=== PATIENT | male | born 1965 | race Caucasian/White ===

== ENCOUNTER → 2020-03-04 14:27 | Outpatient (BNVA) | payer MEDICAID, SELFPAY | PROVIDERS: Family Provider Counselor Professional; Visit Provider Nurse Practitioner Family | DX: R07.81 Pleurodynia (principal); M94.0 Chondrocostal junction syndrome [Tietze] | CPT/HCPCS: 71046 ==

== ENCOUNTER → 2020-04-28 18:00 | Outpatient (BNVA) | payer MEDICAID, SELFPAY | PROVIDERS: Family Provider Counselor Professional; Visit Provider Family Medicine | DX: I25.10 Atherosclerotic heart disease of native coronary artery without angina pectoris (principal); J44.9 Chronic obstructive pulmonary disease, unspecified; F32.9 Major depressive disorder, single episode, unspecified; G47.00 Insomnia, unspecified; F43.10 Post-traumatic stress disorder, unspecified; F41.1 Generalized anxiety disorder; F33.1 Major depressive disorder, recurrent, moderate; M51.9 Unspecified thoracic, thoracolumbar and lumbosacral intervertebral disc disorder; F51.04 Psychophysiologic insomnia | CPT/HCPCS: 80053; 80061; 85025 ==

== ENCOUNTER → 2020-05-27 08:57 | Outpatient (BNVA) | payer MEDICAID, SELFPAY | PROVIDERS: Family Provider Counselor Professional; PCP Family Medicine; Referring Provider Family Medicine; Visit Provider Anesthesiology Pain Medicine | DX: M51.16 Intervertebral disc disorders with radiculopathy, lumbar region (principal); M47.816 Spondylosis without myelopathy or radiculopathy, lumbar region; M54.9 Dorsalgia, unspecified; F43.10 Post-traumatic stress disorder, unspecified; M62.830 Muscle spasm of back; F17.220 Nicotine dependence, chewing tobacco, uncomplicated | CPT/HCPCS: 99204 ==

== ENCOUNTER → 2020-07-09 08:34 | Outpatient (BNVA) | payer MEDICAID, SELFPAY | PROVIDERS: Family Provider Counselor Professional; PCP Family Medicine; Visit Provider Anesthesiology Pain Medicine | DX: M51.16 Intervertebral disc disorders with radiculopathy, lumbar region (principal); M54.9 Dorsalgia, unspecified; M47.816 Spondylosis without myelopathy or radiculopathy, lumbar region; M62.830 Muscle spasm of back; F43.10 Post-traumatic stress disorder, unspecified; F17.220 Nicotine dependence, chewing tobacco, uncomplicated | CPT/HCPCS: 99214 ==

== ENCOUNTER → 2020-07-16 12:31 | Outpatient (BNVA) | payer MEDICAID, SELFPAY | PROVIDERS: Family Provider Counselor Professional; PCP Family Medicine; Visit Provider Anesthesiology Pain Medicine | DX: M51.16 Intervertebral disc disorders with radiculopathy, lumbar region (principal); M54.9 Dorsalgia, unspecified; F17.210 Nicotine dependence, cigarettes, uncomplicated | CPT/HCPCS: 64483; 64484; J1100; J3490 ==

== ENCOUNTER → 2020-07-30 12:41 | Outpatient (BNVA) | payer MEDICAID, SELFPAY | PROVIDERS: Family Provider Counselor Professional; PCP Family Medicine; Visit Provider Anesthesiology Pain Medicine | DX: M51.16 Intervertebral disc disorders with radiculopathy, lumbar region (principal); M54.9 Dorsalgia, unspecified; F17.220 Nicotine dependence, chewing tobacco, uncomplicated | CPT/HCPCS: 64483; 64484; J1100; J3490 ==

== ENCOUNTER → 2020-08-07 09:39 | Outpatient (BNVA) | payer MEDICAID, SELFPAY | PROVIDERS: Family Provider Counselor Professional; PCP Family Medicine; Visit Provider Counselor Professional | DX: F31.32 Bipolar disorder, current episode depressed, moderate (principal) | CPT/HCPCS: 90834 ==

== ENCOUNTER → 2020-08-13 10:35 | Outpatient (BNVA) | payer MEDICAID, SELFPAY | PROVIDERS: Family Provider Counselor Professional; PCP Family Medicine; Visit Provider Anesthesiology Pain Medicine | DX: M54.9 Dorsalgia, unspecified (principal); M51.16 Intervertebral disc disorders with radiculopathy, lumbar region; M47.816 Spondylosis without myelopathy or radiculopathy, lumbar region; M62.830 Muscle spasm of back; F43.10 Post-traumatic stress disorder, unspecified; F17.220 Nicotine dependence, chewing tobacco, uncomplicated | CPT/HCPCS: 64493; 64494; 64495; 99214; J1030; J3490 ==

== ENCOUNTER → 2020-08-20 10:47 | Outpatient (BNVA) | payer MEDICAID, SELFPAY | PROVIDERS: Family Provider Counselor Professional; PCP Family Medicine; Visit Provider Counselor Professional | DX: F31.32 Bipolar disorder, current episode depressed, moderate (principal) | CPT/HCPCS: 90834 ==

== ENCOUNTER → 2020-08-27 10:42 | Outpatient (BNVA) | payer MEDICAID, SELFPAY | PROVIDERS: Family Provider Counselor Professional; PCP Family Medicine; Visit Provider Anesthesiology Pain Medicine | DX: M51.16 Intervertebral disc disorders with radiculopathy, lumbar region (principal); M47.816 Spondylosis without myelopathy or radiculopathy, lumbar region; M54.9 Dorsalgia, unspecified; M62.830 Muscle spasm of back; F43.10 Post-traumatic stress disorder, unspecified; F17.220 Nicotine dependence, chewing tobacco, uncomplicated | CPT/HCPCS: 99213 ==

== ENCOUNTER → 2020-09-05 09:48 | Outpatient (BNVA) | payer MEDICAID, SELFPAY | PROVIDERS: Family Provider Counselor Professional; PCP Family Medicine; Visit Provider Counselor Professional | DX: F43.12 Post-traumatic stress disorder, chronic (principal) | CPT/HCPCS: 90834 ==

== ENCOUNTER → 2020-11-04 10:10 | Outpatient (BNVA) | payer MEDICAID, SELFPAY | PROVIDERS: Family Provider Counselor Professional; PCP Family Medicine; Visit Provider Registered Nurse | DX: I25.10 Atherosclerotic heart disease of native coronary artery without angina pectoris (principal); Z79.899 Other long term (current) drug therapy | CPT/HCPCS: 80061; 83036 ==

== ENCOUNTER → 2020-11-19 10:00 | Outpatient (BNVA) | payer MEDICAID, SELFPAY | PROVIDERS: Family Provider Counselor Professional; PCP Family Medicine; Visit Provider Anesthesiology Pain Medicine | DX: G89.29 Other chronic pain (principal); M54.9 Dorsalgia, unspecified; M51.16 Intervertebral disc disorders with radiculopathy, lumbar region; M47.816 Spondylosis without myelopathy or radiculopathy, lumbar region; M79.604 Pain in right leg; M62.830 Muscle spasm of back; F43.10 Post-traumatic stress disorder, unspecified; Z87.891 Personal history of nicotine dependence | CPT/HCPCS: 99214 ==

== ENCOUNTER 2021-01-14 06:00 | Outpatient (RCR) | payer MEDICAID, SELFPAY ==
[2020-11-24 14:41] VITALS: BP 139/92; BMI 24.4
== END 2021-02-12 23:59 | disposition home or self-care (01) ==
LOC: MPT 06:00
PROVIDERS: PCP Family Medicine; Referring Provider Anesthesiology Pain Medicine; Visit Provider Anesthesiology Pain Medicine
DX: M54.5 Low back pain (principal)
CPT/HCPCS: 97110; 97140; 97162; G0283

== ENCOUNTER → 2021-02-09 09:24 | Outpatient (BNVA) | payer MEDICAID, SELFPAY ==
[2020-11-24 14:41] VITALS: BP 139/92; BMI 24.4
== END ==
PROVIDERS: PCP Family Medicine; Visit Provider Anesthesiology Pain Medicine
DX: G89.29 Other chronic pain (principal); M51.17 Intervertebral disc disorders with radiculopathy, lumbosacral region; M51.16 Intervertebral disc disorders with radiculopathy, lumbar region; M47.816 Spondylosis without myelopathy or radiculopathy, lumbar region; M62.830 Muscle spasm of back; F43.10 Post-traumatic stress disorder, unspecified; M79.604 Pain in right leg
CPT/HCPCS: 99213; 99214

== ENCOUNTER → 2021-03-09 10:30 | Outpatient (BNVA) | payer MEDICAID, SELFPAY ==
[2020-11-24 14:41] VITALS: BP 139/92; BMI 24.4
== END ==
PROVIDERS: PCP Family Medicine; Visit Provider Anesthesiology Pain Medicine
DX: G89.29 Other chronic pain (principal); M51.16 Intervertebral disc disorders with radiculopathy, lumbar region; M47.816 Spondylosis without myelopathy or radiculopathy, lumbar region; M51.17 Intervertebral disc disorders with radiculopathy, lumbosacral region; M79.604 Pain in right leg; M62.830 Muscle spasm of back; F17.200 Nicotine dependence, unspecified, uncomplicated
CPT/HCPCS: 99212; 99213

== ENCOUNTER → 2021-04-15 13:40 | Outpatient (BNVA) | payer MEDICAID, SELFPAY ==
[2020-11-24 14:41] VITALS: BP 139/92; BMI 24.4
== END ==
PROVIDERS: PCP Family Medicine; Visit Provider Family Medicine
DX: I10 Essential (primary) hypertension (principal); R42 Dizziness and giddiness; Z28.21 Immunization not carried out because of patient refusal
CPT/HCPCS: 80053; 83735; 85025

== ENCOUNTER → 2021-06-09 09:35 | Outpatient (BNVA) | payer MEDICAID, SELFPAY ==
[2020-11-24 14:41] VITALS: BP 139/92; BMI 24.4
== END ==
PROVIDERS: PCP Family Medicine; Visit Provider Anesthesiology Pain Medicine
DX: M51.17 Intervertebral disc disorders with radiculopathy, lumbosacral region (principal); M51.16 Intervertebral disc disorders with radiculopathy, lumbar region; M62.830 Muscle spasm of back; M47.816 Spondylosis without myelopathy or radiculopathy, lumbar region; F43.10 Post-traumatic stress disorder, unspecified; Z87.891 Personal history of nicotine dependence
CPT/HCPCS: 99213

== ENCOUNTER → 2021-09-11 10:09 | Outpatient (BNVA) | payer MEDICAID, SELFPAY ==
[2020-11-24 14:41] VITALS: BP 139/92; BMI 24.4
== END ==
PROVIDERS: PCP Family Medicine; Visit Provider Surgery
DX: K21.00 Gastro-esophageal reflux disease with esophagitis, without bleeding (principal)
CPT/HCPCS: 99204

== ENCOUNTER 2021-10-27 11:31 | Outpatient (CLI) | payer MEDICAID, SELFPAY ==
[2020-11-24 14:41] VITALS: BP 139/92; BMI 24.4
--- NOTE | 2021-10-27 12:15 | USCV_ITS ---
Richard Santamaria Age: 56 Gender: M : 1965 Exam Date: 10/27/2021 12:28 Ordering Phys: Danette Minor DO Technologist: Exam Location: [facility] [place] Indication: Rt leg pain PROCEDURES: Venous duplex imaging was performed in only the right lower extremity. The following venous structures were evaluated: common femoral vein, profunda vein, proximal portion of the greater saphenous vein, superficial femoral vein, and the popliteal vein. In addition, the posterior tibial and peroneal trunk were evaluated. FINDINGS: Normal 2-D Doppler and augmentation and compressibility throughout the lower extremity venous structures. Additional imaging through the proximal calf veins also reveals no thrombus. Limited evaluation of the greater saphenous vein is patent with no thrombus.. CONCLUSIONS No evidence of right lower extremity DVT. Alex Shaver MD (Electronically Signed) Final Date: 27 October 2021 16:41 S
== END 2021-10-27 11:32 | disposition home or self-care (01) ==
LOC: RAD 11:33
PROVIDERS: PCP Family Medicine; Visit Provider Emergency Medicine
DX: M79.661 Pain in right lower leg (principal)
CPT/HCPCS: 93971

== ENCOUNTER → 2021-11-09 14:46 | Outpatient (BNVA) | payer MEDICAID, SELFPAY ==
[2020-11-24 14:41] VITALS: BP 139/92; BMI 24.4
== END ==
PROVIDERS: PCP Family Medicine; Visit Provider Family Medicine
DX: M79.661 Pain in right lower leg (principal)
CPT/HCPCS: 73590

== ENCOUNTER → 2021-11-12 08:38 | Outpatient (BNVA) | payer MEDICAID, SELFPAY ==
[2020-11-24 14:41] VITALS: BP 139/92; BMI 24.4
== END ==
PROVIDERS: PCP Family Medicine; Visit Provider Counselor Mental Health
DX: F33.2 Major depressive disorder, recurrent severe without psychotic features (principal); F43.12 Post-traumatic stress disorder, chronic
CPT/HCPCS: 90834

== ENCOUNTER → 2021-11-18 14:02 | Outpatient (BNVA) | payer MEDICAID, OTHER, SELFPAY ==
[2021-11-17 12:42] VITALS: BP 139/92; BMI 24.4
== END ==
PROVIDERS: PCP Family Medicine; Visit Provider Psychiatry & Neurology Neurology
DX: Z79.899 Other long term (current) drug therapy (principal)
CPT/HCPCS: 80061; 83036

== ENCOUNTER → 2021-11-26 10:52 | Outpatient (BNVA) | payer MEDICAID, SELFPAY ==
[2021-11-17 12:42] VITALS: BP 139/92; BMI 24.4
== END ==
PROVIDERS: PCP Family Medicine; Visit Provider Nurse Practitioner Family
DX: M79.661 Pain in right lower leg (principal); M25.561 Pain in right knee
CPT/HCPCS: 73560; 73565; 99214

== ENCOUNTER → 2021-11-27 09:47 | Outpatient (BNVA) | payer MEDICAID, SELFPAY ==
[2021-11-17 12:42] VITALS: BP 139/92; BMI 24.4
== END ==
PROVIDERS: PCP Family Medicine; Visit Provider Emergency Medicine
DX: I10 Essential (primary) hypertension (principal); R60.9 Edema, unspecified
CPT/HCPCS: 80053; 83880

== ENCOUNTER 2021-12-02 06:50 | Day surgery (SDC) | payer MEDICAID, SELFPAY ==
[2020-11-24 14:41] VITALS: BP 139/92; BMI 24.4
[2021-11-17 12:42] VITALS: BP 139/92; BMI 24.4
[2021-11-30 11:23] VITALS: BMI 24.7
[2021-12-02 07:07] VITALS: BP 111/81; PULSE 91; RESP 18; TEMP 36.3; O2SAT 97
[2021-12-02] MEDS: sodium chloride 0.9% 1,000 ML 30 ML IV (07:10)
--- NOTE | 2021-12-02 07:24 | ANES.PREANE2 ---
Pre-Anesthetic Assessment Height/Weight: Height 1.73 m Weight 73.936 kg Temp Pulse Resp BP Pulse Ox 97.4 F L 91 18 111/81 97 12/02/21 07:07 12/02/21 07:07 12/02/21 07:07 12/02/21 07:07 12/02/21 07:07 Preop Diagnosis: upper gi symptoms Operation Date: 12/02/21 08:30 Proposed Procedures p EGD 27654/k21.9(Not Applicable) - Rocco Ibarra MD Familial anesthetic complications: None Was Beta Cristóbal taken within 24 hours: N/A Was Clonidine taken within 24 hours: N/A Last intake: Intake Last Liquid Date 12/02/21 Last Liquid Time 06:00 Last Solid Date 12/01/21 Last Solid Time 16:00 Social Tobacco (chews) and No alcohol Exam alert, oriented x 3, clear to auscultation bilaterally and regular rate & rhythm Airway Mallampati: Class III Dentition: full Pulmonary None reported CV/HEM Coronary Artery Disease and Hypertension None reported Hepatic None reported GI Gastroesophageal Reflux Disease [facility] [place] chronic pain Anesthetic Plan ASA status: 3 Anesthesia: MAC Risk of > 500 ml blood loss (7ml/kg in children): No Medications/Allergies Home Medications Medication Instructions Recorded Confirmed Last Taken Type aspirin 81 mg tablet,delayed 81 mg PO DAILY 04/28/20 12/02/21 12/01/21 History release (Adult Aspirin Regimen) miscellaneous medical supply See Rx Instructions MISCELLANEOUS 10/10/20 12/02/21 12/01/21 Rx .COMPLEX #1 ea gabapentin 600 mg tablet 600 mg PO TID 90 Days #270 tab 08/25/21 12/02/21 12/01/21 Rx lisinopril 10 mg tablet 10 mg PO BID 90 Days #180 tab 08/25/21 12/02/21 12/01/21 Rx loratadine 10 mg tablet 10 mg PO .at bedtime 90 Days #90 08/25/21 12/02/21 12/01/21 Rx tab omeprazole 40 mg capsule,delayed 40 mg PO BID 90 Days #180 cap 08/25/21 12/02/21 12/01/21 Rx release fluticasone propionate 50 1 spray INTRANASAL BID #16 g 09/26/21 12/02/21 12/01/21 Rx mcg/actuation nasal spray,suspension (Flonase Allergy Relief) lamotrigine 25 mg tablet 75 mg PO BID 30 Days #180 tab 09/28/21 12/02/21 12/01/21 Rx mirtazapine 15 mg tablet 15 mg PO .qhs 30 Days #30 tab 09/28/21 12/02/21 12/01/21 Rx meclizine 12.5 mg tablet 12.5 mg PO TID PRN #90 tab 11/09/21 12/02/21 12/01/21 Rx hydrochlorothiazide 25 mg tablet 25 mg PO QAM #30 tab 11/27/21 12/02/21 12/01/21 Rx Allergies Allergy/AdvReac Type Severity Reaction Status Date / Time acetaminophen [From Percocet] Allergy Unknown UNKNOWN Verified 12/02/21 07:03 oxycodone [From Percocet] Allergy Unknown UNKNOWN Verified 12/02/21 07:03 Current Medications Generic Name Dose Route Start Last Admin Trade Name Freq PRN Reason Stop Dose Admin Sodium Chloride 1,000 mls @ 30 mls/hr 12/02/21 07:00 12/02/21 07:10 Sodium Chloride 0.9% IV 12/03/21 06:59 30 mls/hr .Q24H ML Administration PFSH Anesthesia Medical History Arthritis Chronic back pain GERD (gastroesophageal reflux disease) Psychiatric care Surgical History History of colonoscopy 2 years ago Hx of tonsillectomy Family History Father Stroke Heart attack Mother Cancer Social History Smoking and tobacco status: current every day smoker smokeless tobacco Smokeless tobacco user: chewing tobacco and snuff Smokeless tobacco details: takes a week to go through a can Quit status (tobacco): has tried quititng Number of times tried to quit tobacco: 2 Second hand smoke exposure: Yes Alcohol intake: current Alcohol intake frequency: holidays/special occasions only Alcohol type: beer Adopted: No Caregiver/support person: No Lives independently: No Household members: spouse and family Housing: Manufactured/Mobile home Marital status: Marital status details: 5 years Number of children: 0 Number of grandchildren: 0 Highest education level completed: High School Graduate service: Yes status: Discharged branch: [email or web address] Assignments: Outside [facility] ([facility]) Known or Potential Exposure: None Current occupational status: unemployed Pets and animals: Yes Pets & animals: dog(s) History of recent travel: No Leisure activites: music, games and reading Sexually active: Yes Current gender identity: Male Vicky/Catholic: Taoism Special vicky needs: No Agree to transfusion: Yes Financial difficulty paying for basics: Not Very Hard Data Anesthesia Cardiac Studies: No Data to Display
--- NOTE | 2021-12-02 08:51 | P.HP_ITS ---
Same Day Surgery H&P Indication for Procedure/HPI DATE OF PROCEDURE: December 02, 2021 CHIEF COMPLAINT/INDICATIONFOR SURGICAL PROCEDURE: egd PREOP DIAGNOSIS: upper gi symptoms PLANNED PROCEDURE: Operation Date: 12/02/21 08:30 Proposed Procedures p EGD 50458/k21.9(Not Applicable) - Rocco Ibarra MD Medications/Allergies* Home Medications Medication Instructions Recorded Confirmed Type aspirin 81 mg tablet,delayed 81 mg PO DAILY 04/28/20 12/02/21 History release (Adult Aspirin Regimen) Allergies/Adverse Reactions Allergy/AdvReac Type Severity Reaction Status Date / Time acetaminophen [From Percocet] Allergy Unknown UNKNOWN Verified 12/02/21 07:03 oxycodone [From Percocet] Allergy Unknown UNKNOWN Verified 12/02/21 07:03 Current Medications: Generic Name Dose Route Start Last Admin Trade Name Freq PRN Reason Stop Dose Admin Sodium Chloride 1,000 mls @ 30 mls/hr 12/02/21 07:00 12/02/21 07:10 Sodium Chloride 0.9% IV 12/03/21 06:59 30 mls/hr .Q24H ML Administration Pertinent History/Comorbid Conditions* Medical History (Updated 11/09/21 @ 14:45 by Adri Santoro MD) Arthritis Chronic back pain GERD (gastroesophageal reflux disease) Psychiatric care Surgical History (Updated 09/11/21 @ 10:44 by Rocco Ibarra MD) History of colonoscopy 2 years ago Hx of tonsillectomy Family History (Updated 04/28/20 @ 14:46 by Viktoriya Yu CMA) Heart attack Father Cancer Mother Stroke Father Social History Smoking and tobacco status: current every day smoker smokeless tobacco Smokeless tobacco user: chewing tobacco and snuff Smokeless tobacco details: takes a week to go through a can Quit status (tobacco): has tried quititng Number of times tried to quit tobacco: 2 Second hand smoke exposure: Yes Alcohol intake: current Alcohol intake frequency: holidays/special occasions only Alcohol type: beer Adopted: No Caregiver/support person: No Lives independently: No Household members: spouse and family Housing: Manufactured/Mobile home Marital status: Marital status details: 5 years Number of children: 0 Number of grandchildren: 0 Highest education level completed: High School Graduate service: Yes status: Discharged branch: [employer] Assignments: Outside [facility] ([facility]) Known or Potential Exposure: None Current occupational status: unemployed Pets and animals: Yes Pets & animals: dog(s) History of recent travel: No Leisure activites: music, games and reading Sexually active: Yes Current gender identity: Male Vicky/Sabianism: Rastafari Special vicky needs: No Agree to transfusion: Yes Financial difficulty paying for basics: Not Very Hard Pertinent Exam Findings alert, oriented x 3 and regular rate & rhythm Recommendations Surgery/Procedure today Coding Level of Care Code Acute Ed Educational Aide for Reji Alvarenga
[2021-12-02 09:20] VITALS: BP 95/64; PULSE 98; RESP 16; TEMP 36.2; O2SAT 92
[2021-12-02 09:30] VITALS: BP 93/70; PULSE 90; RESP 18; O2SAT 99
--- NOTE | 2021-12-02 12:52 | ANE.PACU2 ---
Inpatient post-anesthesia follow up: Airway intact: Yes Vital signs: Temperature 97.2 F Pulse Rate 90 Respiratory Rate 18 Blood Pressure 93/70 Pulse Oximetry 99 Oxygen Delivery Me thod Room Air Oxygen Flow Rate Fraction of Inspir ed Oxygen Hydration adequate: Yes Nausea and vomiting: Yes Pain level: 1 Mental status: Baseline
== END 2021-12-02 09:40 | disposition home or self-care (01) ==
PROVIDERS: PCP Family Medicine; Visit Provider Surgery
PROC: 0DJ08ZZ Inspection of Upper Intestinal Tract, Via Natural or Artificial Opening Endoscopic (ICD-10-PCS; CPT 43235; principal; 2021-12-02 08:30)
DX: K21.9 Gastro-esophageal reflux disease without esophagitis (principal); M19.90 Unspecified osteoarthritis, unspecified site; F17.220 Nicotine dependence, chewing tobacco, uncomplicated; I25.10 Atherosclerotic heart disease of native coronary artery without angina pectoris; I10 Essential (primary) hypertension; Z79.82 Long term (current) use of aspirin; K29.51 Unspecified chronic gastritis with bleeding
CPT/HCPCS: 43239; 88305; 88342; J2704; J7030

== ENCOUNTER → 2021-12-08 13:41 | Outpatient (BNVA) | payer MEDICAID, OTHER, SELFPAY ==
[2021-12-04 15:51] VITALS: BP 149/100; BMI 25.5
== END ==
PROVIDERS: PCP Family Medicine; Visit Provider Surgery
DX: Z09 Encounter for follow-up examination after completed treatment for conditions other than malignant neoplasm (principal); K21.00 Gastro-esophageal reflux disease with esophagitis, without bleeding
CPT/HCPCS: 99212

== ENCOUNTER 2022-01-19 09:23 | Outpatient (CLI) | payer MEDICAID, SELFPAY ==
[2021-11-17 12:42] VITALS: BP 139/92; BMI 24.4
[2021-12-04 15:51] VITALS: BP 149/100; BMI 25.5
--- NOTE | 2022-01-19 09:30 | MR_ITS ---
WS: [id number] MRI RIGHT KNEE HISTORY: Chronic pain. COMPARISON: Radiographs 11/26/2021 Anterior cruciate ligament: Intact. Small amount of increased T2 signal in the distal ACL. No full-th ickness tear identified. Posterior cruciate ligament: Intact. Medial collateral ligament: Mild displacement from the joint line by a small meniscal cyst. No tear. Posterior lateral corner structures: Intact. Medial menisci: Complex tear in the posterior horn extends to involve a large portion of the meniscus . Increased signal in the free edge. There is increased signal contacting the superior and inferior a rticular surfaces and there is a small lobulated cyst measuring 9 x 11 mm which is probably a menisca l cyst. This cyst is situated between the meniscus and the MCL. Lateral meniscus: Intact. Normal signal, size and shape. Extensor mechanism: Distal quadriceps tendon and patellar tendons are intact. Fluid and soft tissue: No joint effusion. No Moran's cyst. Osseous and articular structures: Patellofemoral compartment: Mild narrowing of the patellofemoral joint space. Loss of cartilage over the patellar eminence and medial facet. Small amount of subchondral edema at the patellar eminence. N o dislocation of the patella. Medial compartment: Mild narrowing of the medial compartment. Moderate diffuse chondromalacia. There is increased T2 signal consistent with softening an early changes of cartilage injury. Lateral compartment: Mild narrowing lateral compartment with mild diffuse chondromalacia. MR/MR knee RT wo con* [id number] IMPRESSION: 1. Complex tear posterior horn medial meniscus with involvement of the superio r and inferior articular surfaces and free edge. 2. Associated meniscal cyst with posterior medial meniscus. 3. Mild increased signal in the distal ACL but no tear. 4. Tricompartment chondromalacia. Most significant involving the medial compar tment, patellar eminence and lateral patellar facet.
== END 2022-01-19 09:24 | disposition home or self-care (01) ==
LOC: RAD 09:24
PROVIDERS: PCP Family Medicine; Visit Provider Nurse Practitioner Family
DX: S83.231A Complex tear of medial meniscus, current injury, right knee, initial encounter; M23.021 Cystic meniscus, posterior horn of medial meniscus, right knee; M22.41 Chondromalacia patellae, right knee; X58.XXXA Exposure to other specified factors, initial encounter
CPT/HCPCS: 73721

== ENCOUNTER 2022-01-20 20:00 | Outpatient (CLI) | payer MEDICAID, SELFPAY ==
[2021-12-04 15:51] VITALS: BP 149/100; BMI 25.5
== END 2022-01-20 20:01 | disposition home or self-care (01) ==
LOC: SLEEP 01-21 08:01
PROVIDERS: PCP Family Medicine; Visit Provider Family Medicine
DX: G47.33 Obstructive sleep apnea (adult) (pediatric)
CPT/HCPCS: 95811

== ENCOUNTER → 2022-02-23 10:36 | Outpatient (BNVA) | payer MEDICAID, SELFPAY ==
[2021-12-04 15:51] VITALS: BP 149/100; BMI 25.5
== END ==
PROVIDERS: PCP Family Medicine; Visit Provider Family Medicine
DX: M79.672 Pain in left foot (principal); J30.2 Other seasonal allergic rhinitis
CPT/HCPCS: 73630

== ENCOUNTER → 2022-02-26 07:52 | Outpatient (BNVA) | payer MEDICAID, SELFPAY ==
[2021-12-04 15:51] VITALS: BP 149/100; BMI 25.5
== END ==
PROVIDERS: PCP Family Medicine; Visit Provider Nurse Practitioner Family
DX: M23.203 Derangement of unspecified medial meniscus due to old tear or injury, right knee (principal)
CPT/HCPCS: 99214

== ENCOUNTER 2022-03-11 10:50 | Day surgery (SDC) | payer MEDICAID, SELFPAY ==
[2021-12-04 15:51] VITALS: BP 149/100; BMI 25.5
[2022-03-10 14:03] VITALS: BMI 27.3
[2022-03-11] VITALS (12 sets, daily range): BP systolic 91–128; BP diastolic 58–92; PULSE 85–102; RESP 12–22; TEMP 36.3–36.6; O2SAT 90–100
[2022-03-11] MEDS: sodium chloride 0.9% 1,000 ML 30 ML IV (11:16)
[2022-03-11 11:49] LABS: Anion Gap 14.3 (5-19); Blood Urea Nitrogen 13 mg/dL (6-20); Calcium 9.9 mg/dL (8.5-10.5); Carbon Dioxide 27 mmol/L (22-29); Chloride 99 mmol/L (98-107); Glomerular Filtration Rate 69.2 mL/min (90-130); Glucose 91 mg/dL (65-115); Osmolality Calculated 282 mOsm/kg (285-295); Potassium 4.3 mmol/L (3.5-5.1); Sodium 136 mmol/L (136-145)
--- NOTE | 2022-03-11 12:57 | ANES.PREANE2 ---
Pre-Anesthetic Assessment Height/Weight: Height 1.73 m Weight 81.647 kg Temp Pulse Resp BP Pulse Ox O2 Del Method 97.8 F 88 18 111/84 98 03/11/22 11:07 03/11/22 11:07 03/11/22 11:07 03/11/22 11:07 03/11/22 11:07 03/11/22 11:14 Preop Diagnosis: upper gi symptoms Operation Date: 03/11/22 13:05 Proposed Procedures p Knee Arthroscopy(Right) - Doroteo Parr MD Familial anesthetic complications: none Was Beta Cristóbal taken within 24 hours: N/A Was Clonidine taken within 24 hours: N/A Last intake: Intake Last Liquid Date 03/10/22 Last Liquid Time 22:00 Last Solid Date 03/10/22 Last Solid Time 19:00 Social No alcohol and No tobacco Exam alert, oriented x 3, clear to auscultation bilaterally and regular rate & rhythm Airway Submandibular: within normal limits Cervical ROM: within normal limits Mallampati: Class II Dentition: chipped Comments: Comments: poor Pulmonary Sleep Apnea CV/HEM Coronary Artery Disease and Hypertension GI Gastroesophageal Reflux Disease Musc/skel Lower Back Pain Neuropsych Anxiety and Depression Anesthetic Plan ASA status: 2 Anesthesia: General Medications/Allergies Home Medications Medication Instructions Recorded Confirmed Last Taken Type aspirin 81 mg tablet,delayed 81 mg PO DAILY 04/28/20 03/11/22 03/10/22 17:00 History release (Adult Aspirin Regimen) miscellaneous medical supply See Rx Instructions miscellaneous 10/10/20 02/26/22 12/01/21 Rx .COMPLEX #1 ea fluticasone propionate 50 1 spray intranasal BID #16 grams 09/26/21 03/11/22 03/10/22 Rx mcg/actuation nasal spray,suspension (Flonase Allergy Relief) meclizine 12.5 mg tablet 12.5 mg PO TID PRN dizziness #90 11/09/21 03/10/22 12/01/21 Rx tabs hydrochlorothiazide 25 mg tablet 25 mg PO QAM #30 tabs 11/27/21 03/11/22 03/10/22 17:00 Rx lisinopril 10 mg tablet 10 mg PO BID 90 days #180 tabs 12/17/21 03/11/22 03/10/22 17:00 Rx omeprazole 40 mg capsule,delayed 40 mg PO BID 90 days #180 caps 12/17/21 03/11/22 03/10/22 17:00 Rx release gabapentin 600 mg tablet 900 mg PO TID 90 days #405 tabs 12/21/21 03/11/22 03/10/22 17:00 Rx lamotrigine 25 mg tablet 75 mg PO BID 30 days #180 tabs 12/30/21 03/11/22 03/10/22 17:00 Rx mirtazapine 30 mg tablet 30 mg PO .qhs 30 days #30 tabs 12/30/21 03/11/22 03/10/22 17:00 Rx furosemide 20 mg tablet (Lasix) 20 mg PO QAM PRN edema 30 days #30 01/04/22 03/11/22 03/10/22 17:00 Rx tabs cetirizine 10 mg tablet 10 mg PO DAILY PRN allergy 02/23/22 03/11/22 03/10/22 17:00 Rx symptoms 90 days #90 tabs Allergies Allergy/AdvReac Type Severity Reaction Status Date / Time oxycodone [From Percocet] Allergy Unknown UNKNOWN Verified 03/10/22 14:00 Current Medications Generic Name Dose Route Start Last Admin Trade Name Freq PRN Reason Stop Dose Admin Sodium Chloride 1,000 mls @ 30 mls/hr 03/11/22 11:15 03/11/22 11:16 Sodium Chloride 0.9% IV 03/12/22 11:14 30 mls/hr .Q24H ML Administration PFSH Anesthesia Medical History Arthritis Chronic back pain GERD (gastroesophageal reflux disease) Psychiatric care Surgical History H/O esophagogastroduodenoscopy (12/02/21) History of colonoscopy 2 years ago Hx of tonsillectomy Family History Father Stroke Heart attack Mother Cancer Social History Smoking and tobacco status: current every day smoker (Smokeless tobacco) smokeless tobacco Smokeless tobacco user: chewing tobacco and snuff Smokeless tobacco details: takes a week to go through a can Quit status (tobacco): has tried quititng Number of times tried to quit tobacco: 2 Second hand smoke exposure: Yes Alcohol intake: current Alcohol intake frequency: holidays/special occasions only Alcohol type: beer Adopted: No Caregiver/support person: No Lives independently: No Household members: spouse and family Housing: Manufactured/Mobile home Marital status: Marital status details: 5 years Number of children: 0 Number of grandchildren: 0 Highest education level completed: High School Graduate service: Yes status: Discharged branch: [employer] Assignments: Outside [facility] ([facility]) Known or Potential Exposure: None Current occupational status: unemployed Pets and animals: Yes Pets & animals: dog(s) History of recent travel: No Leisure activites: music, games and reading Sexually active: Yes Current gender identity: Male Vicky/Scientology: Orthodoxy Special vicky needs: No Agree to transfusion: Yes Financial difficulty paying for basics: Not Very Hard Data Anesthesia : 03/11/22 11:19 BMP 03/11/22 11:19 Sodium 136 Potassium 4.3 Chloride 99 Carbon Dioxide 27 BUN 13 Creatinine 1.1 Glucose 91 Calcium 9.9 Cardiac Studies: No Data to Display
--- NOTE | 2022-03-11 13:02 | P.HP_ITS ---
Same Day Surgery H&P Indication for Procedure/HPI DATE OF PROCEDURE: March 11, 2022 CHIEF COMPLAINT/INDICATIONFOR SURGICAL PROCEDURE: Right medial meniscal tear PREOP DIAGNOSIS: upper gi symptoms PLANNED PROCEDURE: Operation Date: 03/11/22 13:05 Proposed Procedures p Knee Arthroscopy(Right) - Doroteo Parr MD 7 year old male patient, he is here today for an evaluation of his right knee pain. He states that he has had pain to his right knee for 20 years now. He states that his pain is reproduced by walking and standing.? He states that time it will pop and even catch some days is worse than others.? He is started babying that knee so much that now his left knee is starting to hurt from taking more of the load he states that he uses tylenol and gabapentin for pain. He states that his pain will wake him up at night.? Medications/Allergies* Home Medications Medication Instructions Recorded Confirmed Type aspirin 81 mg tablet,delayed 81 mg PO DAILY 04/28/20 03/11/22 History release (Adult Aspirin Regimen) Allergies/Adverse Reactions Allergy/AdvReac Type Severity Reaction Status Date / Time oxycodone [From Percocet] Allergy Unknown UNKNOWN Verified 03/10/22 14:00 Current Medications: Generic Name Dose Route Start Last Admin Trade Name Freq PRN Reason Stop Dose Admin Sodium Chloride 1,000 mls @ 30 mls/hr 03/11/22 11:15 03/11/22 11:16 Sodium Chloride 0.9% IV 03/12/22 11:14 30 mls/hr .Q24H ML Administration Pertinent History/Comorbid Conditions* Medical History (Updated 02/26/22 @ 08:23 by ANAHI Morocho) Arthritis Chronic back pain GERD (gastroesophageal reflux disease) Psychiatric care Surgical History (Updated 12/02/21 @ 09:20 by Rocco Ibarra MD) H/O esophagogastroduodenoscopy (12/02/21) History of colonoscopy 2 years ago Hx of tonsillectomy Family History (Updated 04/28/20 @ 14:46 by Viktoriya Yu [facility]) Heart attack Father Cancer Mother Stroke Father Social History Smoking and tobacco status: current every day smoker (Smokeless tobacco) smokeless tobacco Smokeless tobacco user: chewing tobacco and snuff Smokeless tobacco details: takes a week to go through a can Quit status (tobacco): has tried quititng Number of times tried to quit tobacco: 2 Second hand smoke exposure: Yes Alcohol intake: current Alcohol intake frequency: holidays/special occasions only Alcohol type: beer Adopted: No Caregiver/support person: No Lives independently: No Household members: spouse and family Housing: Manufactured/Mobile home Marital status: Marital status details: 5 years Number of children: 0 Number of grandchildren: 0 Highest education level completed: High School Graduate service: Yes status: Discharged branch: [place] Assignments: Outside [facility] ([facility]) Known or Potential Exposure: None Current occupational status: unemployed Pets and animals: Yes Pets & animals: dog(s) History of recent travel: No Leisure activites: music, games and reading Sexually active: Yes Current gender identity: Male Vicky/Protestant: Mormon Special vicky needs: No Agree to transfusion: Yes Financial difficulty paying for basics: Not Very Hard Pertinent Exam Findings alert, oriented x 3 and clear to auscultation bilaterally ?RANGE OF MOTION:? EXAMINED LIMB? Extention:? [FULL]? Flexion:? [120]? Contralateral. knee Extension full Flexion 120 ?? ? GOOD STABILITY, cruciate and collateral ligaments, Patient with pain with valgus and varus test patella tracks well there is some crepitus noted.? Negative patellar apprehension test.? Tomi test positive Pertinent Data 3 views of the right knee are reviewed dated 11/26/2021. Weightbearing AP radiographs are included. There is minimal medial joint space narrowing. There is no joint sclerosis or osteophytes. An MRI of the right knee and report are reviewed dated 01/19/2022. The patient has complex tearing of his medial meniscus with associated meniscal cyst there is tricompartmental degenerative changes most marked involving the medial compartment. Recommendations Surgery/Procedure today Other Plans: The patient has ongoing right knee pain and mechanical symptoms. His radiographs reveal reasonable preservation of his medial joint space. He has clear meniscal tearing. We will proceed with a diagnostic arthroscopy and likely medial meniscectomy. I warned him in the presence of degenerative changes he could continue to have ongoing symptoms. I discussed the possible need for further procedures including knee replacement Coding Level of Care Code Acute Instructional Developer for Reji Alvarenga
[2022-03-11] MEDS: ceFAZolin 2,000 MG in sodium chloride 0.9% (plus) 50 ML 100 MG IV (13:34)
[2022-03-11] MEDS: morphine 4 mg/mL SDV 1 mL 8 MG XX (14:13)
--- NOTE | 2022-03-11 14:31 | PM.OP ---
Operative Report Date of procedure: March 11, 2022 Pre-op diagnosis: Preop Diagnosis Right knee medial meniscal tear Post-op diagnosis: same Procedure done: Arthroscopic partial right medial meniscectomy Surgeon: Doroteo Parr Anesthesia: General Estimated blood loss (mL): 2 Findings: The patient had a complex chronic tear of his posterior medial meniscus with unstable peripheral longitudinal tear of a very poor tendon quality involving approximately the central 80% of the posterior medial meniscal Disposition: PACU Procedure: The patient was taken to the operating room and given 2 g of Ancef. He was given a general anesthesia and prepped and draped in the supine position with a tourniquet on the right thigh. The tourniquet was never inflated. The knee was infiltrated with 30 cc of 0.5% Marcaine and 8 mg of morphine. A timeout was performed. The knee was entered through standard inferior medial and inferior lateral portals. The diagnostic portion arthroscopy was performed. The complex tearing was identified in the medial meniscus. The meniscal quality was poor and repair was not thought to be feasible. Utilizing a straight basket unstable posterior third of the meniscus was removed. The rim was then cleaned up with an incisor shaver and Dominguez and Nephew Werewolf probe leaving a stable rim approxi-20% of the meniscus remaining. The leg was then placed in a [id number] position. The lateral meniscus was healthy. No chondromalacia was identified over either femoral condyle tibial plateaus, knee was irrigated with saline. Portals were closed with 3-0 Prolene. Sterile dressings were applied. The patient was extubated and taken to recovery room in stable condition.
--- NOTE | 2022-03-11 14:41 | SUR.PHASEI ---
14:30 RECEIVED PT FROM OR STAFF. UNRESPONSIVE TO VERBAL. SNORING RESPIRATIONS. NSR ON MONITOR.
--- NOTE | 2022-03-11 15:05 | SUR.PHASEI ---
15:00 PT ALERT AND ORIENTED. VENTILATING WELL. ROM AND SENSATION OF RIGHT FOOT.
--- NOTE | 2022-03-11 15:06 | ANE.PACU2 ---
Inpatient post-anesthesia follow up: Airway intact: Yes Vital signs: Temperature 97.3 F Pulse Rate 89 Respiratory Rate 12 Blood Pressure 91/58 Pulse Oximetry 99 Oxygen Delivery Me thod Nasal Cannula Oxygen Flow Rate 4 Fraction of Inspir ed Oxygen Hydration adequate: Yes Nausea and vomiting: No Pain level: 2 Mental status: Baseline
[2022-03-11] MEDS: acetaminophen 500 mg Tablet 1000 MG PO (15:39)
== END 2022-03-11 15:53 | disposition home or self-care (01) ==
PROVIDERS: Anesthesiology; PCP Family Medicine; Visit Provider Orthopaedic Surgery
PROC: (CPT 29870; principal; 2022-03-11 12:55)
DX: S83.201A Bucket-handle tear of unspecified meniscus, current injury, left knee, initial encounter (principal); X58.XXXA Exposure to other specified factors, initial encounter; G47.30 Sleep apnea, unspecified; I25.10 Atherosclerotic heart disease of native coronary artery without angina pectoris; I10 Essential (primary) hypertension; K21.9 Gastro-esophageal reflux disease without esophagitis; F41.9 Anxiety disorder, unspecified; F32.A Depression, unspecified; Z79.82 Long term (current) use of aspirin; F17.290 Nicotine dependence, other tobacco product, uncomplicated
CPT/HCPCS: 29881; 80048; J0690; J1100; J2250; J2270; J2405; J2704; J3010; J3490; J7030

== ENCOUNTER → 2022-03-16 09:05 | Outpatient (BNVA) | payer MEDICAID, SELFPAY ==
[2021-12-04 15:51] VITALS: BP 149/100; BMI 25.5
== END ==
PROVIDERS: PCP Family Medicine; Visit Provider Nurse Practitioner Family
DX: Z98.890 Other specified postprocedural states (principal)
CPT/HCPCS: 99024

== ENCOUNTER → 2022-05-25 11:01 | Outpatient (BNVA) | payer MEDICAID, SELFPAY ==
[2021-12-04 15:51] VITALS: BP 149/100; BMI 25.5
== END ==
PROVIDERS: PCP Family Medicine; Visit Provider Family Medicine
DX: K21.9 Gastro-esophageal reflux disease without esophagitis (principal); I10 Essential (primary) hypertension; R06.02 Shortness of breath; J44.9 Chronic obstructive pulmonary disease, unspecified; Z87.891 Personal history of nicotine dependence
CPT/HCPCS: 71046; 80053; 83735; 85025

== ENCOUNTER 2022-07-01 13:31 | Outpatient (CLI) | payer MEDICAID, SELFPAY ==
[2021-12-04 15:51] VITALS: BP 149/100; BMI 25.5
== END 2022-07-01 13:32 | disposition home or self-care (01) ==
LOC: RT 13:32
PROVIDERS: PCP Family Medicine; Visit Provider Family Medicine
DX: R06.02 Shortness of breath (principal); J44.9 Chronic obstructive pulmonary disease, unspecified; Z87.891 Personal history of nicotine dependence
CPT/HCPCS: 94060; 94729

== ENCOUNTER → 2022-09-16 09:41 | Outpatient (BNVA) | payer MEDICAID, SELFPAY ==
[2021-12-04 15:51] VITALS: BP 149/100; BMI 25.5
== END ==
PROVIDERS: PCP Family Medicine; Visit Provider Internal Medicine Pulmonary Disease
DX: R06.09 Other forms of dyspnea (principal); J98.4 Other disorders of lung; F17.220 Nicotine dependence, chewing tobacco, uncomplicated; F41.9 Anxiety disorder, unspecified; F32.A Depression, unspecified; F43.10 Post-traumatic stress disorder, unspecified
CPT/HCPCS: 36415; 85651; 86038; 86140; 86200; 86235; 86431; 99204

== ENCOUNTER 2022-09-24 15:35 | Outpatient (CLI) | payer MEDICAID, SELFPAY ==
[2021-12-04 15:51] VITALS: BP 149/100; BMI 25.5
--- NOTE | 2022-09-24 16:00 | CT_ITS ---
WS: [id number] CT CHEST CT-HIGH RESOLUTION, NONCONTRAST. HISTORY: Interstitial lung disease. Technique: High-resolution chest CT is performed in inspiration, expiration, supine and prone positio eddi. All CT scans at [facility] use at least one of these dose optimization techniques: automated exposure control; mA and/or kV adjustment per patient size (includes targeted exams where dose is mat ched to clinical indication); or iterative reconstruction. DLP: 1109.55 mGy.cm COMPARISON: Chest radiograph 05/25/2022 Findings: There are a few scattered granulomata and micronodules. 2 mm nodule LEFT lower lobe. No mas s. No pneumonia. Lungs are mildly hyperinflated. No cystic lung disease. No blebs or bulla. No bronchiectasis or honey combing. No mosaic attenuation on the expiratory portion of the examination. There is symmetric volum e loss during expiration. No pericardial or pleural effusions. Normal size aorta and pulmonary artery. No mediastinal or hilar adenopathy. There is increased soft tissue in the anterior mediastinum which may be reactive thymic t issue. Small hiatal hernia. Although the liver is incompletely visualized the liver appears enlarged with hepatic steatosis. Sple en also appears enlarged. On the localizer the spleen measures at least 18.5 cm in length. Normal adr enal glands. CT/CT chest wo con [id number] Impression: 1. No evidence for bronchiectasis, honeycombing or bleb formation. 2. No pneumonia or suspicious pulmonary mass or nodule. 3. No adenopathy. 4. Incompletely included on this examination but the liver and spleen appear e nlarged. There is also hepatic steatosis. Recommend additional evaluation of th e liver and spleen. Abdominal ultrasound or CT abdomen and pelvis with IV and o ral contrast.
== END 2022-09-24 15:36 | disposition home or self-care (01) ==
LOC: RAD 15:39
PROVIDERS: PCP Family Medicine; Visit Provider Internal Medicine Pulmonary Disease
DX: J98.4 Other disorders of lung (principal)
CPT/HCPCS: 71250

== ENCOUNTER 2022-10-15 06:51 | Outpatient (CLI) | payer MEDICAID, SELFPAY ==
[2021-12-04 15:51] VITALS: BP 149/100; BMI 25.5
--- NOTE | 2022-10-15 | US_ITS ---
WS: [id number] ULTRASOUND ABDOMEN CLINICAL INFORMATION: ABD PAIN COMPARISON: None. FINDINGS: Liver Size: Enlarged Craniocaudal length: 21.2 cm. Echogenicity: Coarse with fatty filtration Surface nodularity: None. Mass (size and location): None. Bile ducts Intrahepatic ducts: Normal. Common bile duct diameter: 0.2 cm. Gallbladder Tiny polyp Gallstones: None. Gallbladder sludge: None. Gallbladder wall thickening: None. Pericholecystic fluid: None. Sonographic Moser sign: Absent. Pancreas Normal as visualized. Spleen Splenomegaly: Mild Craniocaudal length: 12.2 cm. Right kidney: Normal. Hydronephrosis: None. Size: 9.7 cm x 5.4 cm x 4.4 cm Left kidney: Small cysts LEFT kidney measuring 6 Hydronephrosis: None. Size: 9.5 cm x 3.8 cm x 4.8 cm. Abdominal aorta and IVC Visualized portions are normal. Ascites: None. US/US abdomen complete* [id number] IMPRESSION: 1. Hepatomegaly with diffuse fatty infiltration. 2. Tiny polyp in the gallbladder measuring 3.4 x 2.7 mm. 3. No hydronephrosis in either kidney. 4. Tiny simple cyst LEFT kidney measuring 10 x 8 mm. 5. Spleen size upper limits of normal measuring 12.1 x 7.1 cm
== END 2022-10-15 06:52 | disposition home or self-care (01) ==
LOC: RAD 06:52
PROVIDERS: PCP Family Medicine; Visit Provider Internal Medicine Pulmonary Disease
DX: R10.9 Unspecified abdominal pain (principal); K76.0 Fatty (change of) liver, not elsewhere classified; R16.0 Hepatomegaly, not elsewhere classified; K82.4 Cholesterolosis of gallbladder; N28.1 Cyst of kidney, acquired
CPT/HCPCS: 76700

== ENCOUNTER → 2023-02-08 11:24 | Outpatient (BNVA) | payer MEDICAID, OTHER, SELFPAY ==
[2021-12-04 15:51] VITALS: BP 149/100; BMI 25.5
== END ==
PROVIDERS: PCP Family Medicine; Visit Provider Family Medicine
DX: I10 Essential (primary) hypertension (principal); I25.10 Atherosclerotic heart disease of native coronary artery without angina pectoris; R55 Syncope and collapse
CPT/HCPCS: 80053; 80061; 83036; 85025

== ENCOUNTER → 2023-03-21 09:23 | Outpatient (BNVA) | payer MEDICAID, OTHER, SELFPAY ==
[2021-12-04 15:51] VITALS: BP 149/100; BMI 25.5
== END ==
PROVIDERS: PCP Family Medicine; Referring Provider Family Medicine; Visit Provider Family Medicine
DX: M51.16 Intervertebral disc disorders with radiculopathy, lumbar region (principal)
CPT/HCPCS: 72100

== ENCOUNTER → 2023-04-26 08:51 | Outpatient (BNVA) | payer MEDICAID, SELFPAY ==
[2021-12-04 15:51] VITALS: BP 149/100; BMI 25.5
== END ==
PROVIDERS: PCP Family Medicine; Referring Provider Family Medicine; Visit Provider Student in an Organized Health Care Education/Training Program
DX: M23.306 Other meniscus derangements, unspecified meniscus, right knee
CPT/HCPCS: 73560; 73565; 99214

== ENCOUNTER → 2023-05-24 07:58 | Outpatient (BNVA) | payer MEDICAID, SELFPAY ==
[2021-12-04 15:51] VITALS: BP 149/100; BMI 25.5
== END ==
PROVIDERS: PCP Family Medicine; Visit Provider Psychiatry & Neurology Neurology
DX: R55 Syncope and collapse (principal)
CPT/HCPCS: 95812; 95819; 99203

== ENCOUNTER 2023-06-01 06:46 | Outpatient (CLI) | payer MEDICAID, SELFPAY ==
[2021-12-04 15:51] VITALS: BP 149/100; BMI 25.5
--- NOTE | 2023-06-01 07:15 | USCV_ITS ---
Richard Santamaria Age: 58 Gender: M : 1965 Exam Date: 06/01/2023 07:17 Ordering Phys: Troy Spain MD Technologist: EMMA [place] [facility] [place]: SYNCOPE AND DIZZINESS Risk Factors: Previous Vascular Surgery: Right Brachial BP: / Left Brachial BP: / Right Left Velocity (cm/s) Spectral Plaque Velocity (cm/s) Spectral Plaque Syst/Diast Broadening Syst/Diast Broadening 103.60/29.80 Prox CCA 84.50 / 27.00 86.30/ 25.60 Mid CCA 84.10 / 30.90 97.40/ 34.20 Distal CCA 82.80 / 32.90 93.20/ 19.90 Prox ICA 50.00 / 19.10 55.20/ 28.90 Mid ICA 48.60 / 21.40 51.90/ 28.30 Distal ICA 54.10 / 31.30 74.10 ECA 61.50 0.90 ICA/CCA 0.64 Antegrade Vertebral Antegrade 47.30/ 19.10 cm/s 28.80/ 11.20 cm/s Tri Subclavian Tri 93.10 115.8 0 FINDINGS Comparison: none available. No significant elevation of systolic or diastolic velocities. Waveforms are normal. No significant amount of calcified plaque or intimal thickening identified. CONCLUSIONS Normal carotid doppler ultrasound. Dr. Katerina Oreilly DO (Electronically Signed) Final Date: 01 June 2023 07:57 S
== END 2023-06-01 06:47 | disposition home or self-care (01) ==
LOC: RAD 06:46
PROVIDERS: PCP Family Medicine; Visit Provider Psychiatry & Neurology Neurology
DX: R55 Syncope and collapse (principal); R42 Dizziness and giddiness
CPT/HCPCS: 93880

== ENCOUNTER 2023-06-01 06:47 | Outpatient (CLI) | payer MEDICAID, SELFPAY ==
[2021-12-04 15:51] VITALS: BP 149/100; BMI 25.5
--- NOTE | 2023-06-01 09:30 | MR_ITS ---
WS: [id number] MRI RIGHT KNEE NONCONTRAST TECHNIQUE: Axial PD, coronal PD fat sat, coronal PD, sagittal PD, and sagittal PD fat-sat images obta ined. CLINICAL INFORMATION: rule out meniscal tear COMPARISON: MRI 01/19/2022 FINDINGS: Postoperative changes partial meniscectomy posterior horn medial meniscus. This appears new compared to previous. Postoperative changes involving the posterior horn medial meniscus. No new appearing men iscal tears. Normal lateral meniscus. ACL and PCL appear intact. Advanced chondromalacia patella with subchondral edema worse involving the medial patella facet. Small suprapatellar effusion. Medial and lateral patellar retinaculum appear intact. Medial and lateral collateral ligaments appear intact. N ormal popliteus. Normal popliteal fossa. Grade 2-3 chondromalacia medial and lateral joint compartments. No subchondral edema. Joint space august rowing worse in the medial joint compartment. IMPRESSION: 1. ACL and PCL are intact. 2. Interval postoperative changes partial meniscectomy medial meniscus for previously described medi al meniscal tear. No definite evidence of recurrent tear. 3. 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 Small suprapatellar effusion. 4. Grade II and III chondromalacia medial and lateral joint compartments. 5. Medial and lateral collateral ligaments appear intact. Outbridge grading: grade IV: full-thickness cartilage loss with underlying bone reactive changes
== END 2023-06-01 06:48 | disposition home or self-care (01) ==
LOC: RAD 06:47
PROVIDERS: PCP Family Medicine; Visit Provider Student in an Organized Health Care Education/Training Program
DX: M23.306 Other meniscus derangements, unspecified meniscus, right knee (principal); M22.41 Chondromalacia patellae, right knee; Z98.890 Other specified postprocedural states
CPT/HCPCS: 73721

== ENCOUNTER 2023-06-22 07:01 | Outpatient (CLI) | payer MEDICAID, SELFPAY ==
[2021-12-04 15:51] VITALS: BP 149/100; BMI 25.5
--- NOTE | 2023-06-22 07:15 | MR_ITS ---
WS: [id number] MRI BRAIN WITH AND WITHOUT CONTRAST HISTORY: R55 - Syncope and collapse COMPARISON: None available. TECHNIQUE: Multiplanar imaging performed through the brain with MultiHance 20 ml's IV. No acute infarcts are seen. Atkins-white matter differentiation is well preserved. Very slight volume l oss. No prior infarcts. No susceptibility artifacts or prior lacunar infarcts. Ventricles and extra-axial spaces are normal. Clivus and pituitary gland are normal. Visualized posterior fossa and brainstem are also normal. Postcontrast images are negative for masses or vascular malformations. Dural venous sinuses are normal. Paranasal sinuses: Small mucous retention cyst in the LEFT maxillary sinus. Mastoid air cells: Normal. Calvarium and scalp: Normal. IMPRESSION: 1. No acute infarct or hemorrhage. 2. Very minimal volume loss. No prior infarct. 3. No mass or abnormal enhancement.
[2023-06-22] MEDS: gadobenate dimeglumine 20 mL vial IV (07:45)
== END 2023-06-22 07:02 | disposition home or self-care (01) ==
LOC: RAD 07:01
PROVIDERS: PCP Family Medicine; Visit Provider Psychiatry & Neurology Neurology
DX: R55 Syncope and collapse (principal)
CPT/HCPCS: 70553; A9577

== ENCOUNTER → 2023-06-24 09:55 | Outpatient (BNVA) | payer MEDICAID, SELFPAY ==
[2021-12-04 15:51] VITALS: BP 149/100; BMI 25.5
== END ==
PROVIDERS: PCP Family Medicine; Visit Provider Student in an Organized Health Care Education/Training Program
DX: M23.306 Other meniscus derangements, unspecified meniscus, right knee; M17.11 Unilateral primary osteoarthritis, right knee
CPT/HCPCS: 99213

== ENCOUNTER → 2023-08-08 15:15 | Outpatient (BNVA) | payer MEDICAID, SELFPAY ==
[2021-12-04 15:51] VITALS: BP 149/100; BMI 25.5
== END ==
PROVIDERS: PCP Family Medicine; Visit Provider Psychiatry & Neurology Neurology
DX: R55 Syncope and collapse (principal)
CPT/HCPCS: 99212

== ENCOUNTER → 2023-11-07 13:56 | Outpatient (BNVA) | payer MEDICAID, SELFPAY ==
[2021-12-04 15:51] VITALS: BP 149/100; BMI 25.5
== END ==
PROVIDERS: PCP Family Medicine; Visit Provider Internal Medicine Cardiovascular Disease
DX: R55 Syncope and collapse (principal); I10 Essential (primary) hypertension; Z87.891 Personal history of nicotine dependence; R06.09 Other forms of dyspnea; R00.2 Palpitations
CPT/HCPCS: 99204

== ENCOUNTER → 2023-11-15 16:50 | Outpatient (BNVA) | payer MEDICAID, SELFPAY ==
[2021-12-04 15:51] VITALS: BP 149/100; BMI 25.5
== END ==
PROVIDERS: PCP Family Medicine; Visit Provider Family Medicine
DX: M25.562 Pain in left knee (principal); M17.12 Unilateral primary osteoarthritis, left knee
CPT/HCPCS: 73562

== ENCOUNTER → 2023-11-23 06:48 | Outpatient (CLI) | payer MEDICAID, SELFPAY ==
[2021-12-04 15:51] VITALS: BP 149/100; BMI 25.5
--- NOTE | 2023-11-23 07:15 | USCV_ITS ---
Richard Santamaria Age: 58 Gender: M : 1965 Exam Date: 11/23/2023 07:15 Ordering Phys: Dotty Pathak MD ([email or web address]) Technologist: EMMA [place] [facility] [place]ication: SYNCOPE/DIZZINESS BP: 148 / 101 HR: 72 Rhythm: Sinus Technical Quality: Adequate MEASUREMENTS (Male / Female) Normal Values 2D ECHO LV Diastolic Diameter PLAX 4.7 cm 4.2 - 5.9 / 3.9 - 5.3 cm IVS Diastolic Thickness 1.2 cm 0.6 - 1.0 / 0.6 - 0.9 cm IVS Systolic Thickness 1.7 cm LVPW Diastolic Thickness 2.0 cm 0.6 - 1.0 / 0.6 - 0.9 cm LVPW Systolic Thickness 2.4 cm LVOT Diameter 2.1 cm LV Ejection Fraction 2D Teich 59.3 % LV Ejection Fraction MOD 4C 54.5 % LV Ejection Fraction MOD 2C 61.0 % LV Ejection Fraction 2C AL 63.0 % LA Diameter 3.1 cm RA Systolic Volume 4C AL 14.5 ml RA Systolic Volume 4C MOD 14.0 ml LA Sys Volume AL 21.4 cm cubed LA Sys Volume Index AL 10.0 cm cubed/m squared Aorta at Sinotubular Diameter 2.6 cm M-MODE LA Ao Ratio MM 0.9 AV Cusp Separation MM 2.0 cm DOPPLER AV Peak Velocity 88.0 cm/s LVOT Peak Velocity 78.0 cm/s AV Area Cont Eq vti 3.2 cm squared AV Area Cont Eq pk 3.0 cm squared MV Peak Velocity 97.0 cm/s MV Area PHT 3.6 cm squared Mitral E to A Ratio 0.7 TR Peak Velocity 75.0 cm/s TR Peak Gradient 2.3 mmHg TR Mean Velocity 57.0 cm/s TR Mean Gradient 1.4 mmHg TR Velocity Time Integral 19.8 cm TV Peak E Velocity 52.0 cm/s Right Atrial Pressure 3.0 mmHg Pulmonary Artery Systolic Pressu 5.3 mmHg PV Peak Velocity 135.0 cm/s RV Ejection Time 0.3 s FINDINGS Left Ventricle Normal left ventricular size and systolic function, EF 61%. No regional wall motion abnormalities. Grade I/IV diastolic dysfunction (abnormal relaxation filling pattern), normal to mildly elevated filling pressures. Right Ventricle The right ventricle is normal in size and function. Right Atrium The right atrium is normal in size. Left Atrium The left atrium is normal in size. Mitral Valve No gross abnormalities noted Aortic Valve No gross abnormalities noted Tricuspid Valve No gross abnormalities noted Pulmonic Valve Trace pulmonary valve regurgitation. Pericardium Normal pericardium without effusion. Aorta Mildly dilated aortic root measuring 4.2 cm at the level of the sinuses IVC The inferior vena cava appears normal. CONCLUSIONS Normal left ventricular size and systolic function, EF 61%. No regional wall motion abnormalities. Grade I/IV diastolic dysfunction (abnormal relaxation filling pattern), normal to mildly elevated filling pressures. Mildly dilated aortic root measuring 4.2 cm at the level of the sinuses. Normal cardiac chamber sizes. There is no pericardial effusion. There are no intracardiac masses. No similar previous studies are available for comparison Dr Dotty Pathak MD FAC (Electronically Signed) Final Date: 25 November 2023 21:29 S
== END | disposition home or self-care (01) ==
PROVIDERS: PCP Family Medicine; Visit Provider Internal Medicine Cardiovascular Disease
DX: R06.09 Other forms of dyspnea (principal); R55 Syncope and collapse; R93.1 Abnormal findings on diagnostic imaging of heart and coronary circulation
CPT/HCPCS: 93306

== ENCOUNTER → 2024-02-20 13:09 | Outpatient (BNVA) | payer MEDICAID, SELFPAY ==
[2021-12-04 15:51] VITALS: BP 149/100; BMI 25.5
== END ==
PROVIDERS: PCP Family Medicine; Visit Provider Family Medicine
DX: Z12.5 Encounter for screening for malignant neoplasm of prostate (principal); J44.9 Chronic obstructive pulmonary disease, unspecified; J43.8 Other emphysema; I10 Essential (primary) hypertension
CPT/HCPCS: 80053; 80061; 85025; G0103

== ENCOUNTER → 2024-02-27 13:53 | Outpatient (BNVA) | payer MEDICAID, SELFPAY ==
[2021-12-04 15:51] VITALS: BP 149/100; BMI 25.5
== END ==
PROVIDERS: PCP Family Medicine; Referring Provider Family Medicine; Visit Provider Surgery
DX: Z12.11 Encounter for screening for malignant neoplasm of colon (principal)
CPT/HCPCS: 99024; 99214

== ENCOUNTER 2024-03-08 11:47 | Outpatient (CLI) | payer MEDICAID, SELFPAY ==
[2021-12-04 15:51] VITALS: BP 149/100; BMI 25.5
--- NOTE | 2024-03-08 12:30 | CT_ITS ---
WS: [id number] LDCT LUNG CANCER SCREENING TECHNIQUE: Noncontrast CT of the chest with coronal and sagittal reformatted images. CLINICAL INFORMATION: Z87.891 - Personal history of nicotine dependence COMPARISON: CT chest 09/24/2022 DLP: 70.61 mGy.cm DIvol: Mean CTDIvol: 1.60 (mGy) All CT scans at [facility] use at least one of these dose optimization techniques: automat ed exposure control; mA and/or kV adjustment per patient size (includes targeted exams where dose is matched to clinical indication); or iterative reconstruction. FINDINGS: Lungs are well aerated. Normal caliber thoracic aorta. No mediastinal or hilar lymphadenopathy. No ax illary lymphadenopathy. Adrenal glands are normal. Diffuse fatty infiltration of the liver. Small eso phageal hiatal hernia. No mediastinal or hilar lymphadenopathy. No axillary lymphadenopathy. Adrenal glands are normal. Small esophageal hernia. Mild thoracic kyphosis. Mild thoracic curve. Calcified granulomas RIGHT upper lobe. A few small nodules RIGHT lower lobe near the fissure measurin g 3 mm. A few tiny calcified granulomas LEFT lower lobe. A few tiny subpleural nodules LEFT lower lob e. No other suspicious pulmonary parenchymal opacities. Mild thoracic curve. CT/CT lung screening [id number] IMPRESSION: LUNG-RADS: 2-Benign Appearance or Behavior FOLLOW UP: 12 Month: Continue annual screening with LDCT
== END 2024-03-08 11:48 | disposition home or self-care (01) ==
LOC: RAD 11:49
PROVIDERS: PCP Family Medicine; Visit Provider Family Medicine
DX: Z12.2 Encounter for screening for malignant neoplasm of respiratory organs (principal); F17.210 Nicotine dependence, cigarettes, uncomplicated; R91.8 Other nonspecific abnormal finding of lung field; K76.0 Fatty (change of) liver, not elsewhere classified; R06.09 Other forms of dyspnea; I10 Essential (primary) hypertension; R00.0 Tachycardia, unspecified; I77.819 Aortic ectasia, unspecified site
CPT/HCPCS: 71271; 80053; 80061; 85025; 99214; G0103

== ENCOUNTER 2024-04-10 11:57 | Outpatient (CLI) | payer MEDICAID, SELFPAY ==
[2021-12-04 15:51] VITALS: BP 149/100; BMI 25.5
--- NOTE | 2024-04-10 | ECG_ITS ---
[facility]10 Pat Name: Richard Santamaria Department: Room: Gender: Male Weather Anchor: : 1965 Requested By: Dotty Pathak Order Number: [id number] Jose A MD: Dotty Pathak M.D. Interpretive Statements Lung unchanged pre/post procedure; Intraprocedure shortess of breath; Symptoms resoled by discharge PROCEDURE: At the baseline, the patient's blood pressure was 154/103 with a heart rate of 94. The baseline electrocardiogram showed sinus tachycardia with a rate of 105 bpm. Poor R wave progression. Incomplete right bundle branch block pattern The patient exercised for 6 minutes and 12 seconds on a standard Eliel protocol. Patient attained a maximum heart rate of 150 beats per minute(92% of the maximum predicted heart rate) with a blood pressure at the peak exercise of 201/99 mm Hg. The EKG at the peak exercise revealed no significant changes. Patient did not have any chest pain or any significant cardiac arrhythmias with the exercise During the recovery phase, there were no new changes. Blood pressure at the end of the recovery phase was 151/99 mm Hg with a heart rate of 100 per minute. CONCLUSION: 1. Normal EKG response to treadmill exercise 2. No exercise-induced chest pain or cardiac arrhythmia 3. Fair exercise tolerance, attained a maximum of 10 point METs Electronically Signed On 04-11-2024 20:01:15 INFORMATION MANAGEMENT OFFICER by Dotty Pathak M.D. [id number]
[2024-04-10 12:15] VITALS: BMI 31.3
[2024-04-10 12:23] VITALS: BP 151/99; PULSE 100
== END 2024-04-10 11:58 | disposition home or self-care (01) ==
LOC: CDL 11:58
PROVIDERS: PCP Family Medicine; Visit Provider Internal Medicine Cardiovascular Disease
DX: R06.09 Other forms of dyspnea (principal)
CPT/HCPCS: 93017

== ENCOUNTER 2024-06-18 14:42 | Emergency (ER) | payer MEDICAID, SELFPAY ==
[2021-12-04 15:51] VITALS: BP 149/100; BMI 25.5
[2024-06-18 14:43] VITALS: BP 125/87; PULSE 116; RESP 16; TEMP 36.7; O2SAT 96; BMI 31.6
--- NOTE | 2024-06-18 14:45 | ECG_ITS ---
[facility] 2024-[facility]-18 Pat Name: Richard Santamaria Department: Room: Gender: Male Senior Sql Developer: : 1965 Requested By: Manju Barron Order Number: [id number] Jose A MD: Collin Lilly M.D. Measurements Intervals [place] Rate: 92 P: 51 [place]: 154 QRS: -63 QRSD: 102 T: 57 QT: 352 QTc: 436 Interpretive Statements SINUS RHYTHM WITH OCCASIONAL VENTRICULAR PREMATURE COMPLEXES LEFT AXIS DEVIATION [QRS AXIS < -30] INCOMPLETE RIGHT BUNDLE BRANCH BLOCK [90+ ms QRS DURATION, TERMINAL R IN V1/V2, 40+ ms S IN I/aVL/V4/V5/V6] No previous ECG available for comparison Electronically Signed On 06-21-2024 22:06:12 VERIFYING MACHINE OPERATOR by Collin Lilly M.D. [id number] [id number]
--- NOTE | 2024-06-18 14:46 | XRR_ITS ---
PROCEDURE INFORMATION: Exam: XR Chest Exam date and time: 06/18/2024 2:48 PM Age: 59 years old Clinical indication: Pain; Angina pectoris; Additional info: Cp TECHNIQUE: Imaging protocol: Radiologic exam of the chest. Views: 1 view. COMPARISON: CT lung screening [id number] 03/08/2024 12:09 PM FINDINGS: Lungs: Clear. No consolidation. Pleural spaces: No significant pleural effusion. No pneumothorax. Heart/Mediastinum: Within normal limits. No cardiomegaly. Bones/joints: There are degenerative changes involving the thoracic spine. Other findings: None. XR/XR chest 1V portable [id number] IMPRESSION: No acute findings.
[2024-06-18 15:58] LABS: Basophils # 0.1 10^3/uL (0.0-0.1); Basophils % 0.7 %; Eosinophils # 0.1 10^3/uL (0.0-0.8); Eosinophils % 1.9 %; Hematocrit 46.7 % (37-53); Lymphocytes # 2.3 10^3/uL (0.8-4.8); Lymphocytes % 30.4 %; Mean Corpuscular HGB Conc 33.4 g/dL (30-55); Mean Corpuscular Hemoglobin 28.6 pg (27-33); Mean Corpuscular Volume 85.5 fl (82-101); Mean Platelet Volume 9.2 fL (7.4-10.4); Monocytes # 0.6 10^3/uL (0.2-0.9); Monocytes % 7.8 %; Neutrophils # 4.35 10^3/uL (1.8-7.7); Neutrophils % 58.9 %; Nucleated Red Blood Cells % 0 %; Platelet Count 284 10^3/cmm (157-399); Red Blood Count 5.46 10^6/uL (3.85-5.65); Red Cell Distribution Width 13.2 % (12.1-15.1); White Blood Count 7.39 10^3/uL (3.29-11.43)
--- NOTE | 2024-06-18 15:59 | ED_ITS ---
Documented by User: Mamadou Bowser DO 06/20/24 11:02 HPI - Chest Pain 2 General: Chief Complaint: Chest Pain Stated Complaint: chest pains/SOB Time Seen by Provider: 06/18/24 15:58 History of Present Illness: 59-year-[facility] of intermittent episodes of chest pain. Chest pain began 45 minutes prior to arrival stabbing substernal chest pain radiating into his arm. He states that when he 5 or 7 years ago he had a heart attack in [place] he did have a angiogram but there was no intervention at that time. No fever sweats chills no productive cough. No recent flulike symptoms. No vomiting no diarrhea. No hemoptysis. No history of DVT or PE. Reviewing chart patient is stress test in March 2024 which was negative. Associated symptoms: Deny abdominal pain, dyspnea or fever(s) Related Data Home Medications ?Medication ?Instructions ?Recorded ?Confirmed aspirin 81 mg tablet,delayed 81 mg PO DAILY 04/28/20 0 06/18/24 release (Adult Aspirin Regimen) albuterol sulfate 90 mcg/actuation 2 puff inhalation . Q4-6H PRN 06/18/24 06/18/24 aerosol inhaler (Ventolin HFA) Shortness Of Breath lamotrigine 100 mg tablet 100 mg PO BID 06/18/2406/18 meclizine 12.5 mg tablet 12.5 mg PO TID PRN Dizziness 06/18/24 06/18/24 Previous Rx's ?Medication ?Instructions ?Recorded budesonide-formoterol HFA 160 2 puff inhalation DAILY 30 days 02/20/24 mcg-4.5 mcg/actuation aerosol #10.2 grams inhaler (Symbicort) cetirizine 10 mg tablet 10 mg PO DAILY PRN allergy 1 symptoms 90 days #90 tabs diclofenac sodium 50 mg 50 mg PO Q12H PRN pain #60 t abs 02/20/24 tablet,delayed release fluticasone propionate 50 1 spray intranasal BID #16 g mariana 02/20/24 mcg/actuation nasal spray,suspension (Flonase Allergy Relief) furosemide 20 mg tablet (Lasix) 20 mg PO QAM PRN edema 90 days #90 02/20/24 tabs gabapentin 600 mg tablet 600 mg PO QID 90 days #360 t abs 02/20/24 omeprazole 40 mg capsule,delayed 40 mg PO BID 90 days #180 caps 02/20/24 release metoprolol succinate 50 mg 50 mg PO DAILY #90 tabs tablet,extended release 24 hr Allergies Allergy/AdvReac Type Severity Reaction Status Date / Time oxycodone (From Percocet) Allergy Unknown UNKNOWN Verified 03/08/24 14:50 Review of Systems 2 Const: Denies: fever(s) or chills Card: Reports: chest pain Resp: Denies: dyspnea GI: Denies: abdominal pain : Denies: dysuria, urinary frequency or urinary urgency Musc: Denies: neck pain or back pain Skin/Breast: Denies: rash PFSH ED 2 PFSH: Medical History Syncope and collapse History of tobacco use Psychiatric care GERD (gastroesophageal reflux disease) Chronic back pain Arthritis Surgical History H/O esophagogastroduodenoscopy (12/02/21) History of colonoscopy 2 years ago Hx of tonsillectomy Family History Father Stroke Heart attack Mother Cancer Other Syncope and collapse Social History Smoking and tobacco/nicotine status: former use of tobacco/nicotine Quit status (tobacco/nicotine): has tried quititng Number of times tried to quit tobacco: 2 Second hand smoke exposure: Yes Alcohol intake: current Alcohol intake frequency: holidays/special occasions only Alcohol type: beer Substance/Drug Use: never Adopted: No Caregiver/support person: No Lives independently: No Household members: spouse and family Housing: Manufactured/Mobile home Marital status: Marital status details: 5 years Number of children: 0 Number of grandchildren: 0 Highest education level completed: High School Graduate service: Yes status: Discharged branch: [place] Assignments: Outside [employer] [employer] ([employer]) Known or Potential Exposure: None Current occupational status: unemployed Pets and animals: Yes Pets & animals: dog(s) Leisure activites: music, games and reading Sexually active: Yes Do you think of yourself as: Straight/Heterosexual Current gender identity: Male Vicky/Nondenominational: Restorationist Special vicky needs: No Agree to transfusion: Yes Physical Exam 2 Const: COMMON NORMALS: no acute distress GENERAL APPEARANCE: cooperative ORIENTATION/CONSCIOUSNESS: Yes awake, Yes oriented to person, Yes oriented to place and Yes oriented to time HENMT: COMMON NORMALS: normocephalic, atraumatic and hearing grossly normal bilaterally HEAD & SCALP: normocephalic and atraumatic Resp: COMMON NORMALS: normal respiratory effort, No retractions, No use of accessory muscles and clear to auscultation bilaterally AUSCULTATION: clear to auscultation bilaterally Cardio: COMMON NORMALS: regular rate, regular rhythm and No murmurs present (Cardio) RATE: regular rate RHYTHM: regular rhythm GI: COMMON NORMALS: Soft to palpation and No hepatosplenomegaly present A USCULTATION: Yes normoactive bowel sounds PALPATION: Yes Soft to palpation, No Tenderness to palpation present (GI), No Guarding due to palpation present (GI) and Yes No hepatosplenomegaly present Extremity: COMMON NORMALS: normal to inspection, capillary refill normal, no clubbing, cyanosis or edema, no calf tenderness and no pedal edema Neuro: SENSORIUM/ORIENTATION: Yes oriented to person, Yes oriented to place and Yes oriented to time Skin: COMMON NORMALS: no rashes or lesions noted GENERAL SKIN EXAM: no rashes or lesions noted Course 2 Vital Signs: Vital signs: Vital Signs Temperature 98.0 F 06/18/24 14:43 Pulse Rate 79 06/18/24 19:54 Respiratory Rate 18 06/18/24 19:54 Blood Pressure 126/83 06/18/24 19:54 Pulse Oximetry 96 06/18/24 19:54 Oxygen Delivery Me thod Room Air 06/18/24 18:19 MDM - Chest Pain Medical Decision Making Care signed out to Dr. Bowling at change of shift. See final notes for diagnosis and disposition. Transferred over myself at shift change, lab work was reviewed, initial troponin 8, 2-hour troponin 7.1 for delta of -0.9, other lab work unremarkable, chest x- ray no acute findings, patient was pain-free during his stay here in ER. Patient be then discharged home to follow-up with his PCP. Lab Data 06/18/24 15:45 06/18/24 15:45 Radiology Impressions Chest X-Ray 06/18/24 14:46 IMPRESSION: No acute findings. Laboratory Results WBC 7.39 10^3/uL (3.29-11.43) 06/18/24 15:45 RBC 5.46 10^6/uL (3.85-5.65) 06/18/24 15:45 Hgb 15.60 g/dL (11.27-16.99) 06/18/24 15:45 Hct 46.7 % (37-53) 06/18/24 15:45 MCV 85.5 fl (82-101) 06/18/24 15:45 MCH 28.6 pg (27-33) 06/18/24 15:45 MCHC 33.4 g/dL (30-55) 06/18/24 15:45 RDW 13.2 % (12.1-15.1) 06/18/24 15:45 Plt Count 284 10^3/cmm (157-399) 06/18/24 15:45 MPV 9.2 fL (7.4-10.4) 06/18/24 15:45 Neut % (Auto) 58.9 % 06/18/24 15:45 Lymph % (Auto) 30.4 % 06/18/24 15:45 [place] % (Auto) 7.8 % 06/18/24 15:45 Eos % (Auto) 1.9 % 06/18/24 15:45 Baso % (Auto) 0.7 % 06/18/24 15:45 Neut # (Auto) 4.35 10^3/uL (1.8-7.7) 06/18/24 15:45 Lymph # (Auto) 2.3 10^3/uL (0.8-4.8) 06/18/24 15:45 [place] # (Auto) 0.6 10^3/uL (0.2-0.9) 06/18/24 15:45 Eos # (Auto) 0.1 10^3/uL (0.0-0.8) 06/18/24 15:45 Baso # (Auto) 0.1 10^3/uL (0.0-0.1) 06/18/24 15:45 Nucleated RBC % (auto) 0 % 06/18/24 15:45 Nucleated RBCs # 0.0 /100WBC 06/18/24 15:45 PT 12.30 SECONDS (12.1-14.9) 06/18/24 15:45 INR 0.85 (0.8-1.2) 06/18/24 15:45 D-Dimer 0.32 ug/mLFEU (0-0.59) 06/18/24 15:45 Sodium 138 mmol/L (136-145) 06/18/24 15:45 Potassium 4.2 mmol/L (3.5-5.1) 06/18/24 15:45 Chloride 97 mmol/L (98-107) L 06/18/24 15:45 Carbon Dioxide 27 mmol/L (22-29) 06/18/24 15:45 Anion Gap 18.2 (5-19) 06/18/24 15:45 BUN 14 mg/dL (6-20) 06/18/24 15:45 Creatinine 1.1 mg/dL (0.7-1.2) 06/18/24 15:45 GFR Calculation 68.8 mL/min (90-130) L 06/18/24 15:45 Glucose 107 mg/dL (65-115) 06/18/24 15:45 POC Glucose 108 mg/dL (70-110) 06/18/24 15:52 Calculated Osmolality 287 mOsm/kg (285-295) 06/18/24 15:45 Calcium 10.2 mg/dL (8.5-10.5) 06/18/24 15:45 Total Bilirubin 0.7 mg/dL (0.15-1.2) 06/18/24 15:45 AST 46 U/L (0-40) H 06/18/24 15:45 ALT 75 U/L (0-41) H 06/18/24 15:45 Alkaline Phosphatase 50 U/L (40-130) 06/18/24 15:45 Troponin T Baseline 8 ng/L (0-15) 06/18/24 15:45 Troponin T 120 Minute 7.10 ng/L (0-15) 06/18/24 18:39 Delta Troponin T -0.90 ABS# (0-10) L 06/18/24 18:39 Total Protein 7.4 g/dL (6.6-8.7) 06/18/24 15:45 Albumin 4.9 g/dL (3.5-5.2) 06/18/24 15:45 Globulin 2.5 g/dL (1.3-4.6) 06/18/24 15:45 Lipase 47 U/L (13-60) 06/18/24 15:45 EKG Data EKG 1: Interpretation: EKG initial rate of 69 with a SC interval 0.17. Incomplete right bundle branch block no acute ST changes or elevations. No T wave inversion. Discharge Plan Discharge Patient Disposition: Home Clinical Impression: Chest pain Qualifiers: Chest pain type: unspecified Qualified Code(s): R07.9 - Chest pain, unspecified Condition: Stable Prescriptions: No Action aspirin [Adult Aspirin Regimen] 81 mg tablet,delayed release (DR/EC) 81 mg PO DAILY metoprolol succinate 50 mg tablet extended release 24 hr 50 mg PO DAILY Qty: 90 3RF cetirizine 10 mg tablet 10 mg PO DAILY PRN (Reason: allergy symptoms) 90 Days Qty: 90 2RF Rx Instructions: at bedtime, for allergies budesonide-formoterol [Symbicort] 160-4.5 mcg/actuation HFA aerosol inhaler 2 puff inhalation DAILY 30 Days Qty: 10.2 6RF Rx Instructions: with spacer, rinse out mouth after use diclofenac sodium 50 mg tablet,delayed release (DR/EC) 50 mg PO Q12H PRN (Reason: pain) Qty: 60 5RF Rx Instructions: with FOOD fluticasone propionate [Flonase Allergy Relief] 50 mcg/actuation spray,suspension 1 spray intranasal BID Qty: 16 6RF Rx Instructions: administer into each nostril furosemide [Lasix] 20 mg tablet 20 mg PO QAM PRN (Reason: edema) 90 Days Qty: 90 2RF gabapentin 600 mg tablet 600 mg PO QID 90 Days Qty: 360 2RF omeprazole 40 mg capsule,delayed release(DR/EC) 40 mg PO BID 90 Days Qty: 180 2RF meclizine 12.5 mg tablet 12.5 mg PO TID PRN (Reason: Dizziness) albuterol sulfate [Ventolin HFA] 90 mcg/actuation HFA aerosol inhaler 2 puff inhalation .Q4-6H PRN (Reason: Shortness Of Breath) lamotrigine 100 mg tablet 100 mg PO BID Discharge Orders: Discharge ED (Routine); Ordered 06/18/24 Ordered By: Franky Bowling Referrals: Adri Santoro MD [Primary Care Provider] - 1 week Patient Instructions: Chest Pain (ED) Activity Restrictions/Additional Instructions: Your evaluation ER did not show any acute cause of your chest pain. Your lab work, chest x-ray, and EKGs were unremarkable. Please follow-up with your family practice physician within next 7 days for further evaluation testing. If her chest pain returns or worsens please feel free to return to the ER. Thank you for choosing [facility] for your healthcare needs today. Please realize that you were seen in the emergency department and that we are providing you with an emergency medical screening exam and this may not be a complete and all exclusive of all testing and/or medical workup we may need to determine your element or severity of your illness. It is very important that you follow-up as instructed with your primary care provider or specialist for the additional evaluation and to discuss your medical treatment plan. You may return to the emergency department should you have concerns or if your condition changes or worsens in any way. Print Language: Armenian Coding Level of Care Code ED Clothing Worker for Chg Fwd Documented by User: Franky Bowling DO 06/18/24 19:33 HPI - Chest Pain 2 General: Chief Complaint: Chest Pain Stated Complaint: chest pains/SOB Time Seen by Provider: 06/18/24 15:58 Related Data Home Medications ?Medication ?Instructions ?Recorded ?Confirmed aspirin 81 mg tablet,delayed 81 mg PO DAILY 04/28/20 0 06/18/24 release (Adult Aspirin Regimen) albuterol sulfate 90 mcg/actuation 2 puff inhalation . Q4-6H PRN 06/18/24 06/18/24 aerosol inhaler (Ventolin HFA) Shortness Of Breath lamotrigine 100 mg tablet 100 mg PO BID 06/18/2406/18 meclizine 12.5 mg tablet 12.5 mg PO TID PRN Dizziness 06/18/24 06/18/24 Previous Rx's ?Medication ?Instructions ?Recorded budesonide-formoterol HFA 160 2 puff inhalation DAILY 30 days 02/20/24 mcg-4.5 mcg/actuation aerosol #10.2 grams inhaler (Symbicort) cetirizine 10 mg tablet 10 mg PO DAILY PRN allergy 1 symptoms 90 days #90 tabs diclofenac sodium 50 mg 50 mg PO Q12H PRN pain #60 t abs 02/20/24 tablet,delayed release fluticasone propionate 50 1 spray intranasal BID #16 g mariana 02/20/24 mcg/actuation nasal spray,suspension (Flonase Allergy Relief) furosemide 20 mg tablet (Lasix) 20 mg PO QAM PRN edema 90 days #90 02/20/24 tabs gabapentin 600 mg tablet 600 mg PO QID 90 days #360 t abs 02/20/24 omeprazole 40 mg capsule,delayed 40 mg PO BID 90 days #180 caps 02/20/24 release metoprolol succinate 50 mg 50 mg PO DAILY #90 tabs tablet,extended release 24 hr Allergies Allergy/AdvReac Type Severity Reaction Status Date / Time oxycodone (From Percocet) Allergy Unknown UNKNOWN Verified 03/08/24 14:50 PFS ED 2 PFSH: Medical History Syncope and collapse History of tobacco use Psychiatric care GERD (gastroesophageal reflux disease) Chronic back pain Arthritis Surgical History H/O esophagogastroduodenoscopy (12/02/21) History of colonoscopy 2 years ago Hx of tonsillectomy Family History Father Stroke Heart attack Mother Cancer Other Syncope and collapse Social History Smoking and tobacco/nicotine status: former use of tobacco/nicotine Quit status (tobacco/nicotine): has tried quititng Number of times tried to quit tobacco: 2 Second hand smoke exposure: Yes Alcohol intake: current Alcohol intake frequency: holidays/special occasions only Alcohol type: beer Substance/Drug Use: never Adopted: No Caregiver/support person: No Lives independently: No Household members: spouse and family Housing: Manufactured/Mobile home Marital status: Marital status details: 5 years Number of children: 0 Number of grandchildren: 0 Highest education level completed: High School Graduate service: Yes status: Discharged branch: [place] Assignments: Outside [employer] ([employer]) Known or Potential Exposure: None Current occupational status: unemployed Pets and animals: Yes Pets & animals: dog(s) Leisure activites: music, games and reading Sexually active: Yes Do you think of yourself as: Straight/Heterosexual Current gender identity: Male Vicky/Nondenominational: Restorationist Special vicky needs: No Agree to transfusion: Yes Course 2 Vital Signs: Vital signs: Vital Signs Temperature 98.0 F 06/18/24 14:43 Pulse Rate 79 06/18/24 19:54 Respiratory Rate 18 06/18/24 19:54 Blood Pressure 126/83 06/18/24 19:54 Pulse Oximetry 96 06/18/24 19:54 Oxygen Delivery Me thod Room Air 06/18/24 18:19 MDM - Chest Pain Medical Decision Making Transferred over myself at shift change, lab work was reviewed, initial troponin 8, 2-hour troponin 7.1 for delta of -0.9, other lab work unremarkable, chest x- ray no acute findings, patient was pain-free during his stay here in ER. Patient be then discharged home to follow-up with his PCP. Lab Data 06/18/24 15:45 06/18/24 15:45 Radiology Impressions Chest X-Ray 06/18/24 14:46 IMPRESSION: No acute findings. Laboratory Results WBC 7.39 10^3/uL (3.29-11.43) 06/18/24 15:45 RBC 5.46 10^6/uL (3.85-5.65) 06/18/24 15:45 Hgb 15.60 g/dL (11.27-16.99) 06/18/24 15:45 Hct 46.7 % (37-53) 06/18/24 15:45 MCV 85.5 fl (82-101) 06/18/24 15:45 MCH 28.6 pg (27-33) 06/18/24 15:45 MCHC 33.4 g/dL (30-55) 06/18/24 15:45 RDW 13.2 % (12.1-15.1) 06/18/24 15:45 Plt Count 284 10^3/cmm (157-399) 06/18/24 15:45 MPV 9.2 fL (7.4-10.4) 06/18/24 15:45 Neut % (Auto) 58.9 % 06/18/24 15:45 Lymph % (Auto) 30.4 % 06/18/24 15:45 [place] % (Auto) 7.8 % 06/18/24 15:45 Eos % (Auto) 1.9 % 06/18/24 15:45 Baso % (Auto) 0.7 % 06/18/24 15:45 Neut # (Auto) 4.35 10^3/uL (1.8-7.7) 06/18/24 15:45 Lymph # (Auto) 2.3 10^3/uL (0.8-4.8) 06/18/24 15:45 [place] # (Auto) 0.6 10^3/uL (0.2-0.9) 06/18/24 15:45 Eos # (Auto) 0.1 10^3/uL (0.0-0.8) 06/18/24 15:45 Baso # (Auto) 0.1 10^3/uL (0.0-0.1) 06/18/24 15:45 Nucleated RBC % (auto) 0 % 06/18/24 15:45 Nucleated RBCs # 0.0 /100WBC 06/18/24 15:45 PT 12.30 SECONDS (12.1-14.9) 06/18/24 15:45 INR 0.85 (0.8-1.2) 06/18/24 15:45 D-Dimer 0.32 ug/mLFEU (0-0.59) 06/18/24 15:45 Sodium 138 mmol/L (136-145) 06/18/24 15:45 Potassium 4.2 mmol/L (3.5-5.1) 06/18/24 15:45 Chloride 97 mmol/L (98-107) L 06/18/24 15:45 Carbon Dioxide 27 mmol/L (22-29) 06/18/24 15:45 Anion Gap 18.2 (5-19) 06/18/24 15:45 BUN 14 mg/dL (6-20) 06/18/24 15:45 Creatinine 1.1 mg/dL (0.7-1.2) 06/18/24 15:45 GFR Calculation 68.8 mL/min (90-130) L 06/18/24 15:45 Glucose 107 mg/dL (65-115) 06/18/24 15:45 POC Glucose 108 mg/dL (70-110) 06/18/24 15:52 Calculated Osmolality 287 mOsm/kg (285-295) 06/18/24 15:45 Calcium 10.2 mg/dL (8.5-10.5) 06/18/24 15:45 Total Bilirubin 0.7 mg/dL (0.15-1.2) 06/18/24 15:45 AST 46 U/L (0-40) H 06/18/24 15:45 ALT 75 U/L (0-41) H 06/18/24 15:45 Alkaline Phosphatase 50 U/L (40-130) 06/18/24 15:45 Troponin T Baseline 8 ng/L (0-15) 06/18/24 15:45 Troponin T 120 Minute 7.10 ng/L (0-15) 06/18/24 18:39 Delta Troponin T -0.90 ABS# (0-10) L 06/18/24 18:39 Total Protein 7.4 g/dL (6.6-8.7) 06/18/24 15:45 Albumin 4.9 g/dL (3.5-5.2) 06/18/24 15:45 Globulin 2.5 g/dL (1.3-4.6) 06/18/24 15:45 Lipase 47 U/L (13-60) 06/18/24 15:45 All radiology interpretation(s) finalized by discharge Discharge Plan Discharge Patient Disposition: Home Clinical Impression: Chest pain Qualifiers: Chest pain type: unspecified Qualified Code(s): R07.9 - Chest pain, unspecified Condition: Stable Prescriptions: No Action aspirin [Adult Aspirin Regimen] 81 mg tablet,delayed release (DR/EC) 81 mg PO DAILY metoprolol succinate 50 mg tablet extended release 24 hr 50 mg PO DAILY Qty: 90 3RF cetirizine 10 mg tablet 10 mg PO DAILY PRN (Reason: allergy symptoms) 90 Days Qty: 90 2RF Rx Instructions: at bedtime, for allergies budesonide-formoterol [Symbicort] 160-4.5 mcg/actuation HFA aerosol inhaler 2 puff inhalation DAILY 30 Days Qty: 10.2 6RF Rx Instructions: with spacer, rinse out mouth after use diclofenac sodium 50 mg tablet,delayed release (DR/EC) 50 mg PO Q12H PRN (Reason: pain) Qty: 60 5RF Rx Instructions: with FOOD fluticasone propionate [Flonase Allergy Relief] 50 mcg/actuation spray,suspension 1 spray intranasal BID Qty: 16 6RF Rx Instructions: administer into each nostril furosemide [Lasix] 20 mg tablet 20 mg PO QAM PRN (Reason: edema) 90 Days Qty: 90 2RF gabapentin 600 mg tablet 600 mg PO QID 90 Days Qty: 360 2RF omeprazole 40 mg capsule,delayed release(DR/EC) 40 mg PO BID 90 Days Qty: 180 2RF meclizine 12.5 mg tablet 12.5 mg PO TID PRN (Reason: Dizziness) albuterol sulfate [Ventolin HFA] 90 mcg/actuation HFA aerosol inhaler 2 puff inhalation .Q4-6H PRN (Reason: Shortness Of Breath) lamotrigine 100 mg tablet 100 mg PO BID Discharge Orders: Discharge ED (Routine); Ordered 06/18/24 Ordered By: Franky Bowling Referrals: Adri Santoro MD [Primary Care Provider] - 1 week Patient Instructions: Chest Pain (ED) Activity Restrictions/Additional Instructions: Your evaluation ER did not show any acute cause of your chest pain. Your lab work, chest x-ray, and EKGs were unremarkable. Please follow-up with your family practice physician within next 7 days for further evaluation testing. If her chest pain returns or worsens please feel free to return to the ER. Thank you for choosing [facility] for your healthcare needs today. Please realize that you were seen in the emergency department and that we are providing you with an emergency medical screening exam and this may not be a complete and all exclusive of all testing and/or medical workup we may need to determine your element or severity of your illness. It is very important that you follow-up as instructed with your primary care provider or specialist for the additional evaluation and to discuss your medical treatment plan. You may return to the emergency department should you have concerns or if your condition changes or worsens in any way. Print Language: Armenian Coding Level of Care Code ED Clothing Worker for Reji Alvarenga
[2024-06-18 16:14] LABS: INR 0.85 (0.8-1.2)
[2024-06-18 16:23] LABS: Alanine Aminotransferase 75 U/L (0-41); Albumin Level 4.9 g/dL (3.5-5.2); Alkaline Phosphatase 50 U/L (40-130); Anion Gap 18.2 (5-19); Aspartate Amino Transferase 46 U/L (0-40); Blood Urea Nitrogen 14 mg/dL (6-20); Calcium 10.2 mg/dL (8.5-10.5); Carbon Dioxide 27 mmol/L (22-29); Chloride 97 mmol/L (98-107); Creatinine Clr Calc Pharmacy 81.5639; Globulin 2.5 g/dL (1.3-4.6); Glomerular Filtration Rate 68.8 mL/min (90-130); Glucose 107 mg/dL (65-115); Lipase 47 U/L (13-60); Osmolality Calculated 287 mOsm/kg (285-295); Potassium 4.2 mmol/L (3.5-5.1); Sodium 138 mmol/L (136-145); Total Bilirubin 0.7 mg/dL (0.15-1.2); Total Protein 7.4 g/dL (6.6-8.7)
[2024-06-18 16:41] LABS: Troponin(5th) Baseline 8 ng/L (0-15)
--- NOTE | 2024-06-18 16:46 | ECG_ITS ---
[employer] with a Tweet Test Date: 2024-06-18 Pat Name: Richard Santamaria Department: Room: Gender: Male Finished Goods Inspector: : 1965 Requested By: Manju Barron Order Number: [id number] Jose A MD: Collin Lilly M.D. Measurements Intervals [place] Rate: 69 P: 32 TN: 171 QRS: 23 QRSD: 113 T: 44 QT: 404 QTc: 434 Interpretive Statements SINUS RHYTHM INDETERMINATE AXIS INCOMPLETE RIGHT BUNDLE BRANCH BLOCK [90+ ms QRS DURATION, TERMINAL R IN V1/V2, 40+ ms S IN I/aVL/V4/V5/V6] No previous ECG available for comparison Electronically Signed On 06-21-2024 22:23:16 SURG TECH by Collin Lilly M.D. [email or web address]
[2024-06-18 17:23] VITALS: BP 113/83; PULSE 73; RESP 18; O2SAT 94
[2024-06-18 18:19] VITALS: BP 115/78; PULSE 74; O2SAT 96
[2024-06-18 18:40] LABS: D Dimer 0.32 ug/mLFEU (0-0.59)
[2024-06-18 18:50] LABS: Glucose Point of Care 108 mg/dL (70-110)
[2024-06-18 19:54] VITALS: BP 126/83; PULSE 79; RESP 18; O2SAT 96
== END 2024-06-18 19:48 | disposition home or self-care (01) ==
PROVIDERS: Emergency Medicine; Emergency Provider Family Medicine; PCP Family Medicine
DX: R07.9 Chest pain, unspecified (principal); Z79.82 Long term (current) use of aspirin; Z87.891 Personal history of nicotine dependence
CPT/HCPCS: 36415; 36416; 71045; 80053; 82962; 83690; 84484; 85025; 85378; 85610; 93005; 99285

== ENCOUNTER 2024-07-19 14:47 | Outpatient (CLI) | payer MEDICAID, SELFPAY ==
[2021-12-04 15:51] VITALS: BP 149/100; BMI 25.5
--- NOTE | 2024-07-19 15:00 | CT_ITS ---
WS: [id number] CT angio chest 35411 REASON FOR EXAM: I77.810 - Thoracic aortic ectasia TECHNIQUE: Coronal and sagittal 2-D and MIP reformations. IV CONTRAST ADMINISTERED: 100 mL Omnipaque 350 TOTAL EXAM DLP: 662.[address] scans at [facility] use at least one of these dose optimization techniques: automated exposure control; mA and/or kV adjustment per patient size (includes targeted exams where dose is matched to clinical indication); or iterative reconstruction. COMPARISON: CT chest 03/08/2024. Examination is stable compared to previous examination 03/08/2024. FINDINGS: Mild tortuosity of the thoracic aorta. No significant aortic dilatation. Normal pulmonary arteries. No significant mediastinal or hilar adenopathy. Small (less than 4 mm) right lung nodule unchanged. No other pulmonary parenchymal abnormality. No pleural abnormality. Mild degenerative spondylosis of the thoracic spine. CT/CT angio chest [id number] IMPRESSION: Mild tortuosity of the thoracic aorta. Stable small right lung nodule.
[2024-07-19] MEDS: iohexol 350 mg/mL 500 mL Btl (per mL) IV (15:22)
== END 2024-07-19 14:48 | disposition home or self-care (01) ==
PROVIDERS: PCP Family Medicine; Visit Provider Internal Medicine Cardiovascular Disease
DX: I77.810 Thoracic aortic ectasia (principal); R91.1 Solitary pulmonary nodule; M47.894 Other spondylosis, thoracic region
CPT/HCPCS: 71275

== ENCOUNTER → 2024-12-11 14:07 | Outpatient (BNVA) | payer MEDICAID, SELFPAY ==
[2021-12-04 15:51] VITALS: BP 149/100; BMI 25.5
== END ==
PROVIDERS: PCP Family Medicine; Visit Provider Family Medicine
DX: K76.0 Fatty (change of) liver, not elsewhere classified (principal); I10 Essential (primary) hypertension; R97.20 Elevated prostate specific antigen [PSA]
CPT/HCPCS: 80053; 80061; 83721; 84153

== ENCOUNTER → 2024-12-20 13:47 | Outpatient (BNVA) | payer MEDICAID, SELFPAY ==
[2021-12-04 15:51] VITALS: BP 149/100; BMI 25.5
== END ==
PROVIDERS: PCP Family Medicine; Visit Provider Internal Medicine Cardiovascular Disease
DX: I77.819 Aortic ectasia, unspecified site (principal); R06.09 Other forms of dyspnea; I10 Essential (primary) hypertension; R00.0 Tachycardia, unspecified; Z79.82 Long term (current) use of aspirin; F17.220 Nicotine dependence, chewing tobacco, uncomplicated
CPT/HCPCS: 99214

== ENCOUNTER → 2025-02-18 09:15 | Outpatient (BNVA) | payer MEDICAID, SELFPAY ==
[2025-02-11 14:33] VITALS: BP 149/100; BMI 25.5
== END ==
PROVIDERS: PCP Family Medicine; Visit Provider Internal Medicine
DX: J44.9 Chronic obstructive pulmonary disease, unspecified (principal); G47.33 Obstructive sleep apnea (adult) (pediatric); Z99.89 Dependence on other enabling machines and devices; R91.1 Solitary pulmonary nodule; J30.2 Other seasonal allergic rhinitis; F17.290 Nicotine dependence, other tobacco product, uncomplicated
CPT/HCPCS: 36415; 82103; 85025; 99204; Q3014

== ENCOUNTER → 2025-02-25 13:17 | Outpatient (BNVA) | payer MEDICAID, SELFPAY ==
[2025-02-11 14:33] VITALS: BP 149/100; BMI 25.5
== END ==
PROVIDERS: PCP Family Medicine; Visit Provider Nurse Practitioner
DX: S46.912A Strain of unspecified muscle, fascia and tendon at shoulder and upper arm level, left arm, initial encounter (principal); X58.XXXA Exposure to other specified factors, initial encounter
CPT/HCPCS: 73030

== ENCOUNTER 2025-03-07 15:38 | Outpatient (CLI) | payer MEDICAID, SELFPAY ==
[2025-02-11 14:33] VITALS: BP 149/100; BMI 25.5
--- NOTE | 2025-03-07 16:00 | CTR_ITS ---
PROCEDURE INFORMATION: Exam: CT Chest Without Contrast; Diagnostic Exam date and time: 03/07/2025 4:07 PM Age: 60 years old Clinical indication: Condition or disease; Lung condition and disease; Pulmonary nodule, solitary; Additional info: Lung nodule TECHNIQUE: Imaging protocol: Diagnostic computed tomography of the chest without contrast. Radiation optimization: All CT scans at this facility use at least one of these dose optimization techniques: automated exposure control; mA and/or kV adjustment per patient size (includes targeted exams where dose is matched to clinical indication); or iterative reconstruction. COMPARISON: CT angio chest [id number] 07/19/2024 3:02 PM RADIATION DOSE METRICS: Total DLP (mGy-cm): 416.6 FINDINGS: Lungs: Unremarkable. No consolidation. No masses. Pleural spaces: Unremarkable. No pneumothorax. No pleural effusion. Heart: Unremarkable. No cardiomegaly. No pericardial effusion. Coronary arteries: No coronary artery calcification. Lymph nodes: Unremarkable. No enlarged lymph nodes. Vasculature: Unremarkable. No aortic aneurysm. Spleen: 14 cm splenomegaly. Bones/joints: Unremarkable. No acute fracture. Soft tissues: Unremarkable. Other findings: 2 stable tiny fissural nodules on the right side. CT/CT chest wo con [id number] IMPRESSION: Stable tiny right nodules.
== END 2025-03-07 15:39 | disposition home or self-care (01) ==
LOC: RAD 15:39
PROVIDERS: PCP Family Medicine; Visit Provider Internal Medicine
DX: J44.9 Chronic obstructive pulmonary disease, unspecified (principal); R91.8 Other nonspecific abnormal finding of lung field
CPT/HCPCS: 71250

== ENCOUNTER 2025-03-22 07:08 | Outpatient (CLI) | payer MEDICAID, SELFPAY ==
[2025-02-11 14:33] VITALS: BP 149/100; BMI 25.5
[2025-03-22 07:23] VITALS: PULSE 67; RESP 18; O2SAT 94
== END 2025-03-22 07:09 | disposition home or self-care (01) ==
LOC: RT 07:09
PROVIDERS: PCP Family Medicine; Visit Provider Internal Medicine
DX: J44.9 Chronic obstructive pulmonary disease, unspecified (principal); R94.2 Abnormal results of pulmonary function studies; J45.909 Unspecified asthma, uncomplicated
CPT/HCPCS: 94060; 94729; J7613

== ENCOUNTER → 2025-04-30 09:58 | Outpatient (BNVA) | payer MEDICAID, SELFPAY ==
[2025-02-11 14:33] VITALS: BP 149/100; BMI 25.5
== END ==
PROVIDERS: PCP Family Medicine; Visit Provider Internal Medicine
DX: G47.33 Obstructive sleep apnea (adult) (pediatric) (principal); Z99.89 Dependence on other enabling machines and devices; J44.9 Chronic obstructive pulmonary disease, unspecified; J98.4 Other disorders of lung; R91.1 Solitary pulmonary nodule; E88.01 Alpha-1-antitrypsin deficiency; J30.9 Allergic rhinitis, unspecified; F17.220 Nicotine dependence, chewing tobacco, uncomplicated; J43.9 Emphysema, unspecified
CPT/HCPCS: 99214